=== PATIENT | female | born 1990 | race Caucasian/White ===

== ENCOUNTER 2016-09-02 11:49 | Emergency (ER) | payer SELFPAY ==
[~2016-09-02] VITALS: Ht 162.6 cm; Wt 113.4 kg
[~2016-09-02 11:49] MED LIST: ACHD5005 PO; CEPH500C PO; DOCU100C37 PO; FERR-57 PO; FERR-74 PO; GLYB2.5T4 PO; HYDR-3812 PO; IBP800T PO; IBUP-1773 PO; KETO200T PO; NAPR-243 PO; OXYC-12 PO; PNV1TABL81 PO; PRD10T PO; PRD20T PO; PREN1TAB71 PO; TRAM-42 PO; TRM50T PO
[2016-09-02 13:14] LABS: BILIRUBIN,URINE NEGATIVE (NEGATIVE); KETONES,URINE NEGATIVE (NEGATIVE); LEUKOCYTE ESTERASE ,URINE 1+ (NEGATIVE); NITRITE,URINE NEGATIVE (NEGATIVE); PH,URINE 5 (5-9); PROTEIN,URINE 1+ (NEGATIVE); UROBILINOGEN,URINE NORMAL (NORMAL)
[2016-09-02 13:25] LABS: WBC,URINE 0-2 /HPF
--- NOTE | 2016-09-02 14:29 | ED Back Pain ---
General Chief Complaint: Back Problems Stated Complaint: L LOWER BACK PAIN Nursing Triage Note: ARRIVED VIA AMB TO ROOM 04 WITH COMPLAINTS OF LOW BACK PAIN SINCE SAT WITH NO INJURY. PT STATES SHE HAS TAKEN HER FAMILY'S IBUPROFEN AND HYDROCODONE TODAY WITH NO RELIEF. Nursing Sepsis Screen: No Definite Risk Source of Information: Patient Exam Limitations: No Limitations History of Present Illness Time Seen by Provider: 14:29 Initial Comments 26-year-old female patient presents to the emergency department complains of left low back pain beginning Friday when she woke up. Denies any known injury. Patient does have a pyj-ygyk-bfn, 3-year-old, an [id number] at home. Patient typically sleeps on her right side. Denies any increased activity or heavy lifting recently. Denies bowel incontinence, bladder incontinence, or numbness of the genitalia. Has had a few episodes previously similar to this. Location: Paraspinous Muscles (left low back) Timing/Duration: 1-2 Days, Constant Pain/Injury Location: Back (left low back) Method of Injury: Unknown Modifying Factors: Improves With Immobilization, Worse With Movement Associated Symptoms: muscle spasms, No fever, No weakness, No numbness in legs/ feet, No tingling in legs/feet, No sensory/motor loss, lower back pain (left low back), No loss of bladder control, No loss of bowel control Allergies and Home Medications Allergies Coded Allergies: No Known Drug Allergies (Unverified , 04/20/13) Home Medications No Active Prescriptions or Reported Meds Constitutional: No chills, No fever, No malaise, No weakness EENTM: no symptoms reported Respiratory: no symptoms reported Cardiovascular: no symptoms reported Gastrointestinal: No abdominal pain, No constipation, No diarrhea, No nausea, No vomiting Genitourinary: No dysuria, No frequency, No hematuria, No incontinence, No pain Musculoskeletal: see HPI, back pain, No joint pain, muscle cramps (left low back), No neck pain Skin: no symptoms reported Psychiatric/Neurological: Denies Numbness, Denies Paresthesia, Denies Tingling , Denies Weakness All Other Systems Reviewed Negative Unless Noted: Yes (Negative excepted noted.) Past Hlzuelr-Raburu-Hfsdjp Hx Patient Social History Former Smoker/When Quit: August 21, 2014 Recent Foreign Travel: No Contact w/Someone Who Travel: No Recent Infectious Disease Expo: No Recent Hopitalizations: No Immunizations Up To Date Tetanus Booster (TDap): Less than 5yrs Date of Influenza Vaccine: Jan 05, 2013 Surgeries HX Surgeries: Yes (OVARIAN CYSTECTOMY, ) Surgeries: Section Respiratory Hx Respiratory Disorders: Yes (HAS INHALER-HAS NOT USED IN AT LEAST A YEAR) Respiratory Disorders: Asthma Cardiovascular Hx Cardiac Disorders: No Neurological Hx Neurological Disorders: No Reproductive System Hx Reproductive Disorders: No Sexually Transmitted Disease: No HIV/AIDS: No Female Reproductive Disorders: Denies Genitourinary Hx Genitourinary Disorders: No Gastrointestinal Hx Gastrointestinal Disorders: No Musculoskeletal Hx Musculoskeletal Disorders: No Endocrine Hx Endocrine Disorders: Yes (THYROID- USED TO TAKE MEDS, GESTATIONAL DIABETES) HEENT HX ENT Disorders: Yes (GLASSES) Cancer Hx Cancer: No Psychosocial Hx Psychiatric Problems: No Integumentary HX Skin/Integumentary Disorder: No Blood Transfusions Hx Blood Disorders: No Adverse Reaction to a Blood Tr: No Reviewed Nursing Assessment Reviewed/Agree w Nursing PMH: Yes Family Medical History Significant Family History: No Pertinent Family Hx Family Medial History: Patient reports no known family medical history. Physical Exam Vital Signs Vital Sign - Last 12Hours 09/02/16 12:45 Temp 98.0 Pulse 97 Resp 18 B/P (MAP) 122/75 Capillary Refill : Less Than 3 Seconds General Appearance: No Apparent Distress, WD/WN HEENT: PERRL/EOMI, Pharynx Normal Neck: Full Range of Motion, Normal Inspection, Non Tender, Supple Cardiovascular: Regular Rate, Rhythm, No Edema, No Murmur, Normal Peripheral Pulses Respiratory: Lungs Clear, Normal Breath Sounds, No Respiratory Distress Gastrointestinal: Normal Bowel Sounds, No Organomegaly, Non Tender, Soft, No Distended Back: Normal Inspection, No Vertebral Tenderness, No Decreased Range of Motion , Muscle Spasm Extremity: Normal Capillary Refill, Normal Inspection, Normal Range of Motion ( active range of motion of the left hip increases left low back pain.), Non Tender, No Pedal Edema, Pelvis Stable Neurologic/Psychiatric: Alert, Oriented x3, No Motor/Sensory Deficits, Normal Mood/Affect Skin: Normal Color, Warm/Dry Progress/Results/Core Measures Results/Orders Lab Results Laboratory Tests Test 09/02/16 13:05 Range/Units Urine Color YELLOW Urine Clarity CLEAR Urine pH 5 5-9 Urine Specific Edison 1.020 1.016-1.022 Urine Protein 1+ H NEGATIVE Urine Glucose (UA) NEGATIVE NEGATIVE Urine Ketones NEGATIVE NEGATIVE Urine Nitrite NEGATIVE NEGATIVE Urine Bilirubin NEGATIVE NEGATIVE Urine Urobilinogen NORMAL NORMAL MG/DL Urine Leukocyte Esterase 1+ H NEGATIVE Urine RBC (Auto) NEGATIVE NEGATIVE Urine RBC NONE /HPF Urine WBC 0-2 /HPF Urine Squamous Epithelial Cells 2-5 /HPF Urine Crystals NONE /LPF Urine Bacteria FEW H /HPF Urine Casts NONE /LPF Urine Mucus SMALL H /LPF Urine Culture Indicated NO My Orders Orders - SOCORRO MEDINA Ua Culture If Indicated (09/02/16 12:39) Urine Bedside (09/02/16 12:39) Ibuprofen Tablet (Motrin Tablet) (09/02/16 14:49) Vital Signs/I&O Vital Sign - Last 12Hours 09/02/16 12:45 Temp 98.0 Pulse 97 Resp 18 B/P (MAP) 122/75 Blood Pressure Mean: 91 Point of Care Testing Urine -Bedside: Negative Departure Impression Impression: Primary Impression: Strain of tendon of back Qualified Codes: S39.012A - Strain of muscle, fascia and tendon of lower back , initial encounter Disposition: HOME, SELF-CARE Condition: Improved Departure-Patient Inst. Decision time for Depature: 14:53 Referrals: [facility] (PCP) Primary Care Physician Patient Instructions: Muscle Strain (DC) Add. Discharge Instructions: All discharge instructions reviewed with patient and/or family. Voiced understanding. Medications as instructed. Tylenol extra strength over-the- counter as directed for pain. Ibuprofen 800 mg by mouth every 8 hours as needed for pain. Ice pack or heating pads as needed for pain. Avoid climbing, pushing, pulling, twisting, bending, heavy lifting for 3-5 days, increase activity slowly as tolerated. Follow-up with your family practitioner if no improvement in symptoms in 7-10 days. Return to the emergency department immediately for worsened pain, numbness, weakness, bowel incontinence, bladder incontinence, numbness of the general area, inability to urinate, blood in the urine, abdominal pain, vomiting, or any other concerns. Scripts Tramadol HCl (Tramadol HCl) 50 Mg Tablet 50 MG PO Q4H Y for pain, #14 TAB 0 Refills Prov: SOCORRO MEDINA 09/02/16 Cyclobenzaprine HCl (Cyclobenzaprine HCl) 10 Mg Tablet 10 MG PO Q8H Y for SPASMS, #14 TAB 0 Refills Prov: SOCORRO MEDINA 09/02/16 Prednisone (Prednisone) 20 Mg Tab 40 MG PO DAILY, #10 TAB 0 Refills Prov: SOCORRO MEDINA 09/02/16 SOCORRO MEDINA September 02, 2016 14:29
[2016-09-02] MEDS ORDERED: IBUPROFEN 800 MG (MOTRIN) TAB PO STA (14:49)
[2016-09-02] MEDS ORDERED: TRAM50TA2 PO (14:55)
[2016-09-02] MEDS ORDERED: CYCL10TA9 PO (14:55)
[2016-09-02] MEDS ORDERED: PRD20T PO (14:55)
[2016-09-02 15:03] VITALS: BP 122/75
== END 2016-09-02 15:03 | disposition home or self-care (01) ==
LOC: EDUNIT# 11:49 → ER 11:51
DX: S39.012A Strain of muscle, fascia and tendon of lower back, initial encounter (principal); X50.0XXA Overexertion from strenuous movement or load, initial encounter; Y92.009 Unspecified place in unspecified non-institutional (private) residence as the place of occurrence of the external cause; Y99.8 Other external cause status
CPT/HCPCS: 81000; 84703; 99282

== ENCOUNTER 2017-02-20 16:53 | Emergency (ER) | payer SELFPAY ==
[~2017-02-20] VITALS: Ht 160 cm; Wt 118.1 kg
[~2017-02-20 16:53] MED LIST changes: +CYCL10TA9 PO; +RT-ALBUINH IH; +TRAM50TA2 PO
[2017-02-20] MEDS ORDERED: AZIT250T12 PO (17:12)
[2017-02-20] MEDS ORDERED: PROM5SYR PO (17:12)
[2017-02-20] MEDS ORDERED: BENZ-13 PO (17:12)
--- NOTE | 2017-02-20 17:12 | ED Cough/URI ---
General Stated Complaint: BRONCHITIS Source: patient Exam Limitations: no limitations History of Present Illness Time seen by provider: 17:08 Initial Comments To ER with a persistent nonproductive cough. She was here on 02/12/17 and diagnosed with bronchitis. She also has a history of asthma and smokes but she is working on quitting smoking. She smokes about 3 cigarettes per day. She was given prednisone at that time and she has finished the prednisone. She was also given amoxicillin for an ear infection a few days prior to presenting here in the eighth. She presents today with no improvement in symptoms, persistent nonproductive cough. Absence of fevers Timing/Duration: constant Severity/Quality: dry cough Associated Symptoms: cough Allergies and Home Medications Allergies Coded Allergies: No Known Drug Allergies (Unverified , 04/20/13) Home Medications Albuterol Sulfate 1 Puff Puff, 1-4 PUFF IH Q4H PRN for SHORTNESS OF BREATH, #1 1 PUFF = 90 MCG Prescribed by: AGUSTIN JANSEN on 02/11/171949 Cyclobenzaprine HCl 10 Mg Tablet, 10 MG PO Q8H PRN for SPASMS, #14 Ref 0 Prescribed by: SOCORRO MEDINA on 09/02/16 145 Prednisone 20 Mg Tab, 40 MG PO DAILY, #10 Ref 0 Prescribed by: SOCORRO MEDINA on 09/02/16 145 Prednisone 20 Mg Tab, 20 MG PO DAILY, #4 Prescribed by: AGSUTIN JANSEN on 02/11/171949 Tramadol HCl 50 Mg Tablet, 50 MG PO Q4H PRN for pain, #14 Ref 0 Prescribed by: SOCORRO MEDINA on 09/02/16 1455 Constitutional: see HPI, No chills, No fever EENTM: see HPI Respiratory: see HPI, cough Cardiovascular: no symptoms reported Genitourinary: no symptoms reported Musculoskeletal: no symptoms reported Skin: no symptoms reported Psychiatric/Neurological: No Symptoms Reported Past Wknquca-Epaubb-Yclobl Hx Patient Social History Recent Foreign Travel: No Contact w/Someone Who Travel: No Recent Hopitalizations: No Immunizations Up To Date Tetanus Booster (TDap): Less than 5yrs Date of Influenza Vaccine: Jan 05, 2013 Surgeries History of Surgeries: Yes (OVARIAN CYSTECTOMY, ) Surgeries: Section Respiratory History of Respiratory Disorde: Yes Respiratory Disorders: Asthma Cardiovascular History of Cardiac Disorders: No Neurological History of Neurological Disord: No Reproductive System Hx Reproductive Disorders: No Sexually Transmitted Disease: No HIV/AIDS: No Female Reproductive Disorders: Denies Genitourinary History of Genitourinary Disor: No Gastrointestinal History of Gastrointestinal Di: No Musculoskeletal History of Musculoskeletal Dis: No Endocrine History of Endocrine Disorders: Yes (THYROID- USED TO TAKE MEDS, GESTATIONAL DIABETES) HEENT History of HEENT Disorders: No Cancer History of Cancer: No Psychosocial History of Psychiatric Problem: No Integumentary History of Skin or Integumenta: No Blood Transfusions History of Blood Disorders: No Adverse Reaction to a Blood Tr: No Family Medical History Significant Family History: No Pertinent Family Hx Family Medial History: Patient reports no known family medical history. Physical Exam Vital Signs Capillary Refill : General Appearance: WD/WN, no apparent distress Eyes: Bilateral Eye Normal Inspection, Bilateral Eye PERRL, Bilateral Eye EOMI HEENT: PERRL/EOMI, normal ENT inspection, TMs normal, pharyngeal erythema Neck: non-tender, full range of motion, No lymphadenopathy (R), No lymphadenopathy (L) Respiratory: chest non-tender, lungs clear, normal breath sounds, no respiratory distress, no accessory muscle use Cardiovascular: no murmur, tachycardia Gastrointestinal: normal bowel sounds, non tender, soft Neurologic/Psychiatric: alert, normal mood/affect, oriented x 3 Skin: normal color, warm/dry Progress/Results/Core Measures Suspected Sepsis SIRS Temperature: Pulse: Respiratory Rate: Blood Pressure / Mean: Results/Orders My Orders Orders - MOE IRBY APRN Chest Pa/Lat (2 View) (02/20/17 17:06) Vital Signs/I&O Capillary Refill : Departure Communication (Admissions) Progress Notes We will cover for atypical pathogens with azithromycin and her promethazine/ codeine and Tessalon Perles for cough control. Impression Impression: Primary Impression: Bronchitis Disposition: 01 HOME, SELF-CARE Condition: Stable Departure-Patient Inst. Decision time for Depature: 17:11 Referrals: [facility] (PCP/Family) Primary Care Physician Patient Instructions: Acute Bronchitis in Adults Add. Discharge Instructions: Medication as directed 2. Follow-up with your doctor next week for recheck 3. Return to ER for any concerns Scripts Azithromycin (Azithromycin) 250 Mg Tablet 250 MG PO UD, #6 TAB TAKE 2 TABLETS ON DAY ONE THEN TAKE 1 TABLET DAILY FOR FOUR MORE DAYS Prov: MOE IRBY APRN 02/20/17 Promethazine HCl/Codeine (Prometh-Codein 6.25-10 mg/5 ml) 5 Ml Syrup 7.5 ML PO Q6H Y for COUGH, #120 ML Prov: MOE IRBY APRN 02/20/17 Benzonatate (Tessalon Perle) 100 Mg Capsule 100 MG PO TID Y for COUGH, #21 CAP Prov: MOE IRBY APRN 02/20/17 Work/School Note: Work Release Form Date Seen in the Emergency Department: Feb 20, 2017 Return to Work: Feb 22, 2017 MOE IRBY APRN Feb 20, 2017 17:12
--- NOTE | 2017-02-20 17:25 | Diagnostic Imaging Report ---
INDICATION: Cough and chest pain EXAM: PA and lateral chest obtained at 5:35 hours p.m. COMPARISON: 02/11/2017. FINDINGS: The heart and mediastinal silhouette are normal in appearance. The lungs are clear. There is no pneumothorax or pleural fluid. IMPRESSION: Negative chest. Dictated by: Dictated on workstation # [id number]
[2017-02-20 17:35] VITALS: BP 143/83
== END 2017-02-20 17:34 | disposition home or self-care (01) ==
LOC: EDUNIT# 16:53 → ER 16:54
DX: J40 Bronchitis, not specified as acute or chronic (principal); J45.909 Unspecified asthma, uncomplicated; Z87.59 Personal history of other complications of pregnancy, childbirth and the puerperium; Z90.6 Acquired absence of other parts of urinary tract
CPT/HCPCS: 71020; 99282

== ENCOUNTER 2017-03-07 20:34 | Emergency (ER) | payer SELFPAY ==
[~2017-03-07] VITALS: Ht 160 cm; Wt 118.1 kg
[~2017-03-07 20:34] MED LIST changes: +AZIT250T12 PO; +BENZ-13 PO; +PROM5SYR PO
[2017-03-07] MEDS ORDERED: LEVO500T2 PO (20:54)
[2017-03-07] MEDS ORDERED: METH4TAB PO (20:54)
--- NOTE | 2017-03-07 20:54 | ED Cough/URI ---
General Chief Complaint: Cough/Cold/Flu Symptoms Stated Complaint: BRONCHITIS Source: patient Exam Limitations: no limitations History of Present Illness Time seen by provider: 20:51 Initial Comments All to ER with reports of a persistent nonproductive cough, sore throat, rhinorrhea no fevers or chills. This will be her third presentation to the emergency room for this complaint within the past month and she has also seen [facility]. He has been on azithromycin and a course of steroids as well as Tessalon Perles and promethazine/codeine. Timing/Duration: constant Severity/Quality: dry cough Associated Symptoms: cough, nasal drainage Allergies and Home Medications Allergies Coded Allergies: No Known Drug Allergies (Unverified , 04/20/13) Home Medications Albuterol Sulfate 1 Puff Puff, 1-4 PUFF IH Q4H PRN for SHORTNESS OF BREATH, #1 1 PUFF = 90 MCG Prescribed by: AGUSTIN JANSEN on 02/11/171949 Azithromycin 250 Mg Tablet, 250 MG PO UD, #6 TAKE 2 TABLETS ON DAY ONE THEN TAKE 1 TABLET DAILY FOR FOUR MORE DAYS Prescribed by: MOE IRBY on 02/20/171711 Benzonatate 100 Mg Capsule, 100 MG PO TID PRN for COUGH, #21 Prescribed by: MOE IRBY on 02/20/171711 Cyclobenzaprine HCl 10 Mg Tablet, 10 MG PO Q8H PRN for SPASMS, #14 Ref 0 Prescribed by: SOCORRO MEDINA on 09/02/161454 Prednisone 20 Mg Tab, 40 MG PO DAILY, #10 Ref 0 Prescribed by: SOCORRO MEDINA on 09/02/161454 Prednisone 20 Mg Tab, 20 MG PO DAILY, #4 Prescribed by: AGUSTIN JANSEN on 02/11/171949 Promethazine HCl/Codeine 5 Ml Syrup, 7.5 ML PO Q6H PRN for COUGH, #120 Prescribed by: MOE IRBY on 02/20/171711 Tramadol HCl 50 Mg Tablet, 50 MG PO Q4H PRN for pain, #14 Ref 0 Prescribed by: SOCORRO MEDINA on 09/02/161454 Constitutional: see HPI, No chills, No fever EENTM: see HPI, nose congestion, throat pain Respiratory: see HPI, cough, No short of breath, No wheezing Cardiovascular: no symptoms reported Genitourinary: no symptoms reported Musculoskeletal: no symptoms reported Skin: no symptoms reported Psychiatric/Neurological: No Symptoms Reported Past Cglfdwp-Bxgyyc-Qkeuet Hx Patient Social History Alcohol Use: Denies Use Recreational Drug Use: No Smoking Status: Former Smoker Recent Foreign Travel: No Contact w/Someone Who Travel: No Recent Hopitalizations: No Immunizations Up To Date Tetanus Booster (TDap): Less than 5yrs Date of Influenza Vaccine: Jan 05, 2013 Surgeries History of Surgeries: Yes (OVARIAN CYSTECTOMY, ) Surgeries: Section Respiratory History of Respiratory Disorde: Yes Respiratory Disorders: Asthma Cardiovascular History of Cardiac Disorders: No Neurological History of Neurological Disord: No Reproductive System Hx Reproductive Disorders: No Sexually Transmitted Disease: No HIV/AIDS: No Female Reproductive Disorders: Denies Genitourinary History of Genitourinary Disor: No Gastrointestinal History of Gastrointestinal Di: No Musculoskeletal History of Musculoskeletal Dis: No Endocrine History of Endocrine Disorders: Yes (THYROID- USED TO TAKE MEDS, GESTATIONAL DIABETES) HEENT History of HEENT Disorders: No Cancer History of Cancer: No Psychosocial History of Psychiatric Problem: No Integumentary History of Skin or Integumenta: No Blood Transfusions History of Blood Disorders: No Adverse Reaction to a Blood Tr: No Family Medical History Significant Family History: No Pertinent Family Hx Family Medial History: Patient reports no known family medical history. Physical Exam Vital Signs Capillary Refill : General Appearance: WD/WN, no apparent distress, obese Eyes: Bilateral Eye Normal Inspection, Bilateral Eye PERRL, Bilateral Eye EOMI HEENT: PERRL/EOMI, normal ENT inspection, other (the right tympanic membrane is erythematous and bulging) Neck: non-tender, full range of motion Respiratory: normal breath sounds, no respiratory distress, no accessory muscle use Cardiovascular: regular rate, rhythm, no murmur Gastrointestinal: normal bowel sounds, non tender, soft Extremities: normal range of motion, non-tender Neurologic/Psychiatric: alert, normal mood/affect, oriented x 3 Skin: normal color, warm/dry Progress/Results/Core Measures Suspected Sepsis SIRS Temperature: Pulse: Respiratory Rate: Blood Pressure / Mean: Results/Orders Vital Signs/I&O Capillary Refill : Departure Impression Impression: Primary Impression: Cough Disposition: 01 HOME, SELF-CARE Condition: Stable Departure-Patient Inst. Decision time for Depature: 20:53 [facility] Primary Care Physician Patient Instructions: Cough, Adult (DC) Scripts Levofloxacin (Levaquin) 500 Mg Tablet 500 MG PO DAILY, #5 TAB Prov: MOE IRBY APRN 03/07/17 Methylprednisolone (Medrol) 4 Mg Tab.ds.pk 4 MG PO UD, #1 PKG Prov: MOE IRBY APRN 03/07/17 MOE IRBY APRN Mar 07, 2017 20:54
--- NOTE | 2017-03-07 21:09 | Diagnostic Imaging Report ---
INDICATION: Cough and shortness of breath. Comparison is made with prior examination from 02/20/2017. FINDINGS: The heart size, mediastinal configuration, and pulmonary vascularity are within normal limits. There is no pleural effusion, pneumothorax, or pneumonia. The osseous structures are unremarkable. IMPRESSION: No acute cardiopulmonary abnormality. Dictated by: Dictated on workstation # [id number]
[2017-03-07] MEDS ORDERED: APAP 300 MG/CODEINE 30 MG (TYLENOL #3) TAB PO ONE (21:15)
[2017-03-07 21:30] LABS: BASOPHILS % (AUTO) 0 % (0-10); EOSINOPHILS # (AUTO) 0.7 10^3/uL (0.0-0.3); EOSINOPHILS % (AUTO) 6 % (0-10); LYMPHOCYTES % (AUTO) 23 % (12-44); MEAN CORPUSCULAR HEMOGLOBIN 31 PG (25-34); MEAN CORPUSCULAR HGB CONC 34 G/DL (32-36); MEAN CORPUSCULAR VOLUME 90 FL (80-99); MEAN PLATELET VOLUME 9.9 FL (7.4-10.4); MONOCYTES # (AUTO) 1.2 X 10^3 (0.0-1.0); MONOCYTES % (AUTO) 9 % (0-12); NEUTROPHILS # (AUTO) 7.8 X 10^3 (1.8-7.8); NEUTROPHILS % (AUTO) 62 % (42-75); PLATELET COUNT 281 10^3/uL (130-400); RED BLOOD COUNT 4.39 10^6/uL (4.35-5.85); RED CELL DISTRIBUTION WIDTH 12.8 % (10.0-14.5); WHITE BLOOD COUNT 12.7 10^3/uL (4.3-11.0)
[2017-03-07 21:37] VITALS: BP 125/87
== END 2017-03-07 21:36 | disposition home or self-care (01) ==
LOC: EDUNIT# 20:34 → ER 20:35
DX: R05 Cough (principal); J45.909 Unspecified asthma, uncomplicated; Z87.59 Personal history of other complications of pregnancy, childbirth and the puerperium; Z87.891 Personal history of nicotine dependence
CPT/HCPCS: 36415; 71020; 85025; 99283

== ENCOUNTER 2017-03-21 16:59 | Emergency (ER) | payer SELFPAY ==
[~2017-03-21] VITALS: Ht 160 cm; Wt 120.2 kg
[~2017-03-21 16:59] MED LIST changes: +LEVO500T2 PO; +METH4TAB PO
[2017-03-21] MEDS ORDERED: KETOROLAC 60 MG/2 ML VIAL IM ONE (17:30)
--- NOTE | 2017-03-21 17:31 | ED Back Pain ---
General Chief Complaint: Back Problems Stated Complaint: BACK PAIN Nursing Triage Note: ARRIVED VIA AMB TO ROOM 10. COMPLAINS OF LOWER LEFT BACK PAIN FOR A WEEK. HAS BEEN SEEN BY AND BY A CHIROPRACTOR. Nursing Sepsis Screen: No Definite Risk Source of Information: Patient Exam Limitations: No Limitations History of Present Illness Time Seen by Provider: 17:26 Initial Comments This 27-year-old white female presents complaining of persistent left low back pain for the last several days. The patient denies remote or recent trauma to the area. She's had 2 similar episodes in the past again unrelated to trauma which lasted for several days and then resolve spontaneously. Patient denies paresthesias or weakness in the a.m. lower extremities. She has had no perineal anesthesia. She has had no impairment of bowel or bladder function. Patient's past medical history includes a recent bronchitis. Patient has had 3 previous C-sections. She's had excision of an ovarian cyst. Allergies and Home Medications Allergies Coded Allergies: No Known Drug Allergies (Unverified , 04/20/13) Home Medications Albuterol Sulfate 1 Puff Puff, 1-4 PUFF IH Q4H PRN for SHORTNESS OF BREATH, #1 1 PUFF = 90 MCG Prescribed by: AGUSTIN JANSEN on 02/11/17 1950 Azithromycin 250 Mg Tablet, 250 MG PO UD, #6 TAKE 2 TABLETS ON DAY ONE THEN TAKE 1 TABLET DAILY FOR FOUR MORE DAYS Prescribed by: MOE IRBY on 02/20/171711 Benzonatate 100 Mg Capsule, 100 MG PO TID PRN for COUGH, #21 Prescribed by: MOE IRBY on 02/20/171711 Cyclobenzaprine HCl 10 Mg Tablet, 10 MG PO Q8H PRN for SPASMS, #14 Ref 0 Prescribed by: SOCORRO MEDINA on 09/02/16 145 Levofloxacin 500 Mg Tablet, 500 MG PO DAILY, #5 Prescribed by: MOE IRBY on 03/07/172053 Methylprednisolone 4 Mg Tab.ds.pk, 4 MG PO UD, #1 Prescribed by: MOE IRBY on 03/07/172053 Prednisone 20 Mg Tab, 40 MG PO DAILY, #10 Ref 0 Prescribed by: SOCORRO MEDINA on 09/02/16 145 Prednisone 20 Mg Tab, 20 MG PO DAILY, #4 Prescribed by: AGUSTIN JANSEN on 02/11/17 1950 Promethazine HCl/Codeine 5 Ml Syrup, 7.5 ML PO Q6H PRN for COUGH, #120 Prescribed by: MOE IRBY on 02/20/17 1712 Tramadol HCl 50 Mg Tablet, 50 MG PO Q4H PRN for pain, #14 Ref 0 Prescribed by: SOCORRO MEDINA on 09/02/16 1455 Constitutional: No chills, No fever EENTM: No hearing loss, No vision loss Respiratory: No cough Cardiovascular: No chest pain Gastrointestinal: No abdominal pain, No nausea, No vomiting Genitourinary: No decreased output, No dysuria, No frequency Musculoskeletal: see HPI, back pain, joint pain (the left SI joint is the area of greatest discomfort to the patient) Skin: No change in color, No rash Psychiatric/Neurological: Denies Anxiety, Denies Depressed Past Gaigfxy-Elneea-Rwmfzj Hx Patient Social History Alcohol Use: Denies Use Recreational Drug Use: No Smoking Status: Current Everyday Smoker Recent Foreign Travel: No Contact w/Someone Who Travel: No Recent Infectious Disease Expo: No Recent Hopitalizations: No Immunizations Up To Date Tetanus Booster (TDap): Less than 5yrs Date of Influenza Vaccine: Jan 05, 2013 Surgeries History of Surgeries: Yes (OVARIAN CYSTECTOMY, ) Surgeries: Section Respiratory History of Respiratory Disorde: Yes Respiratory Disorders: Asthma Cardiovascular History of Cardiac Disorders: No Neurological History of Neurological Disord: No Reproductive System Hx Reproductive Disorders: No Sexually Transmitted Disease: No HIV/AIDS: No Female Reproductive Disorders: Denies Genitourinary History of Genitourinary Disor: No Gastrointestinal History of Gastrointestinal Di: No Musculoskeletal History of Musculoskeletal Dis: No Endocrine History of Endocrine Disorders: Yes (THYROID- USED TO TAKE MEDS, GESTATIONAL DIABETES) HEENT History of HEENT Disorders: No Cancer History of Cancer: No Psychosocial History of Psychiatric Problem: No Integumentary History of Skin or Integumenta: No Blood Transfusions History of Blood Disorders: No Adverse Reaction to a Blood Tr: No Reviewed Nursing Assessment Reviewed/Agree w Nursing PMH: Yes Family Medical History Significant Family History: No Pertinent Family Hx Family Medial History: Patient reports no known family medical history. Physical Exam Vital Signs Vital Sign - Last 12Hours 03/21/17 17:00 Temp 98.0 Pulse 104 Resp 18 B/P (MAP) 148/88 (108) Pulse Ox 99 Capillary Refill : Less Than 3 Seconds General Appearance: No Apparent Distress, WD/WN HEENT: Normal ENT Inspection Neck: Normal Inspection Cardiovascular: Regular Rate, Rhythm Respiratory: Chest Non Tender Gastrointestinal: Normal Bowel Sounds, Non Tender Back: Normal Inspection, Other (. Patient's tenderness and pain is in the left SI.) Extremity: Normal Capillary Refill, Normal Inspection Neurologic/Psychiatric: Alert, Oriented x3 Skin: Normal Color, Warm/Dry Progress/Results/Core Measures Results/Orders My Orders Orders - KENRICK MEDINA MD Ketorolac Injection (Toradol Injection) (03/21/17 17:30) Vital Signs/I&O Vital Sign - Last 12Hours 03/21/17 17:00 Temp 98.0 Pulse 104 Resp 18 B/P (MAP) 148/88 (108) Pulse Ox 99 Blood Pressure Mean: 108 Progress Note : Time: 17:29 Progress Note Discussed the presentation with the patient. She is comfortable with conservative approach of medication and rest over the weekend. She'll follow- up with her caregiver at [facility] on Friday if she is not significantly improved. Patient received 60 mg Toradol IM in the emergency department. Prescriptions written for a medium strength pain medication, further ketorolac, and Flexeril. Departure Impression Impression: Primary Impression: Lower back pain Qualified Codes: M54.5 - Low back pain Disposition: 01 HOME, SELF-CARE Condition: Improved Departure-Patient Inst. Referrals: [facility] (PCP/Family) Primary Care Physician Patient Instructions: Low Back Pain (DC) Add. Discharge Instructions: Percocet, Toradol, and Flexeril as prescribed. Close follow-up with [facility] on Friday if not significantly improved. Return of any problems or questions. All discharge instructions reviewed with patient and/or family. Voiced understanding. KENRICK MEDINA MD Mar 21, 2017 17:30
[2017-03-21 17:49] VITALS: BP 148/88
== END 2017-03-21 17:49 | disposition home or self-care (01) ==
LOC: EDUNIT# 16:59 → ER 17:00
DX: M54.5 Low back pain (principal); J45.909 Unspecified asthma, uncomplicated; Z90.6 Acquired absence of other parts of urinary tract; Z87.59 Personal history of other complications of pregnancy, childbirth and the puerperium
CPT/HCPCS: 99284

== ENCOUNTER 2017-03-28 08:45 | Emergency (ER) | payer SELFPAY ==
[~2017-03-28] VITALS: Ht 160 cm; Wt 120.2 kg
--- OUTSIDE RECORDS SUMMARY | 2017-03-28 08:51 | XMS REPORT | Continuity of Care Document ---
Author Author Replaced By [facility] Address Unknown Phone Unavailable Allergies Active Description Code Type Severity Reaction Onset Reported/Identified Relationship to Patient Clinical Status Yes No Known Drug Allergies [id number] Drug Allergy Unknown N/A 04/20/2013 Medications There is no data. Problems Date Dx Coded Attending Type Code Diagnosis Diagnosed By 10/24/2011 BLANCA EAGLE APRN 112.3 CANDIDIASIS SKIN CANDIDAL INTERTRIGO 10/24/2011 BLANCA EAGLE APRN V74.5 STD SCREEN 10/24/2011 BLANCA EAGLE APRN V76.2 Cervical Pap Smear 10/24/2011 112.3 CANDIDIASIS SKIN CANDIDAL INTERTRIGO 10/24/2011 V74.5 STD SCREEN 10/24/2011 V76.2 Cervical Pap Smear 11/18/2011 BLANCA EAGLE APRN 719.43 PAIN IN JOINT INVOLVING FOREARM 11/18/2011 719.43 PAIN IN JOINT INVOLVING FOREARM 12/28/2011 Ot 881.00 OPEN WOUND OF FOREARM 12/28/2011 Ot E000.8 OTHER EXTERNAL CAUSE STATUS 12/28/2011 Ot E849.0 ACCIDENT IN HOME 12/28/2011 Ot E920.8 ACC-CUTTING INSTRUM NEC 12/28/2011 Ot V06.1 DIPHTHERIA- TETANUS-PERTUSSIS, COMBINED [ 01/07/2012 Ot V58.32 ENCOUNTER FOR REMOVAL OF SUTURES 03/17/2012 BLANCA EAGLE APRN V72.42 TEST POSITIVE RESULT 03/17/2012 V72.42 TEST POSITIVE RESULT 06/27/2012 Ot 079.99 VIRAL INFECTION NOS 06/27/2012 Ot 647.63 OTH VIRAL DIS-ANTEPARTUM 08/18/2012 V65.11 NEW MOMMY VISIT 10/18/2012 FRANCIS FARLEY DO Ot 300.00 ANXIETY STATE NOS 10/18/2012 FRANCIS FARLEY DO Ot 648.41 MENTAL DISORDER-DELIVER 10/18/2012 FRANCIS FARLEY DO Rhoda Ot 654.21 PREV DELIVRY W/ OR W/O MENT ANT 10/18/2012 MARTINE HUMPHRIES FRANCIS Rhoda Ot V03.82 PROPHYLACTIC VACC AGAINST STREPTOCOCCUS 10/18/2012 MARTINE HUMPHRIES FRANCIS Rhoda Ot V06.1 RYVPLULFEO-[id number]-PUAVYOLTD, COMBINED [ 10/18/2012 HAI FARLEY DOTona Duong Ot V27.0 DELIVER-SINGLE LIVEBORN 04/20/2013 MOE IRBY TELEGRAPH MECHANIC Ot 490 BRONCHITIS NOS 04/20/2013 MOE IRBY TELEGRAPH MECHANIC Ot 786.50 CHEST PAIN NOS 04/20/2013 MOE IRBY TELEGRAPH MECHANIC Ot 786.52 PAINFUL RESPIRATION 12/23/2013 CHERI ISIDRO, CHRISTINA Carbone Ot 708.9 URTICARIA NOS 08/30/2014 LINN GUO DO Ot 041.10 BACTERIAL INFEC DUE TO UNSPEC STAPHYLOCO 08/30/2014 LINN GUO DO Ot 110.2 DERMATOPHYTOSIS OF HAND 08/30/2014 LINN GUO DO Ot 782.1 NONSPECIF SKIN ERUPT NEC 11/29/2014 FARLEYTiara HUMPHRIES FRANCIS C Ot V22.1 12/28/2014 MARTINE HUMPHRIES FRANCIS C Ot V28.3 02/16/2015 HAI FARLEY DOA C Ot V22.1 02/16/2015 FARLEY DO FRANCIS C Ot V28.3 02/16/2015 FARLEY HAI HUMPHRIESA C Ot V22.1 02/16/2015 HAI FARLEY DOA C Ot V28.3 02/17/2015 HAI FARLEY DOA C Ot O24.410 02/17/2015 FARLEY DOHAIA C Ot O34.21 02/17/2015 FARLEY DOHAIA C Ot Z3A.37 02/17/2015 FARLEY DO, FRANCIS C Ot O24.410 02/17/2015 FARLEY DO, FRANCIS C Ot O34.21 02/17/2015 FARLEY DO FRANCIS C Ot Z3A.37 02/21/2015 FARLEY DOHAIA C Ot V22.1 02/21/2015 FARLEY DO FRANCIS C Ot V28.3 02/21/2015 FARLEY DO FRANCIS C Ot O24.410 02/21/2015 FARLEY DO, FRANCIS C Ot O34.21 02/21/2015 FARLEY DO, FRANCIS C Ot Z3A.37 03/02/2015 FARLEY DO, FRANCIS C Ot O24.419 GESTATIONAL DIABETES MELLITUS IN PREGNAN 03/02/2015 FARLEY DO, FRANCIS C Ot O34.21 MATERNAL CARE FOR SCAR FROM PREVIOUS ANGELICA 03/02/2015 FARLEY DOFRANCIS C Ot Z23 ENCOUNTER FOR IMMUNIZATION 03/02/2015 FARLEY DOHAIA C Ot Z37.0 SINGLE LIVE 03/02/2015 FARLEY DO FRANCIS C Ot Z3A.39 39 WEEKS GESTATION OF 03/06/2015 FARLEY DO, FRANCIS C Ot O24.410 03/06/2015 FARLEY DO, FRANCIS C Ot O34.21 03/06/2015 FARLEY DO, FRANCIS C Ot Z3A.37 03/14/2015 FARLEY DO, FRANCIS C Ot 654.23 03/14/2015 FARLEY DO, FRANCIS C Ot V72.63 03/14/2015 FARLEY DO, FRANCIS C Ot V74.8 03/14/2015 FARLEY DO, FRANCIS C Ot O24.410 03/14/2015 FARLEY DO, FRANCIS C Ot O34.21 03/14/2015 FARLEY DO, FRANCIS C Ot Z3A.37 03/14/2015 FARLEY DO, FRANCIS C Ot V28.3 03/14/2015 FARLEY DO, FRANCIS C Ot 654.23 03/14/2015 FARLEY DO, FRANCIS C Ot V72.63 03/14/2015 FARLEY DO, FRANCIS C Ot V74.8 03/14/2015 FARLEY DO, FRANCIS C Ot V22.1 03/14/2015 FARLEY DO, FRANCIS C Ot V28.3 03/14/2015 FARLEY DO, FRANCIS C Ot O24.410 03/14/2015 FARLEY DO, FRANCIS C Ot O34.21 03/14/2015 FARLEY DO, FRANCIS C Ot Z3A.37 06/12/2015 FARLEY DO, FRANCIS C Ot O24.410 06/12/2015 FARLEY DO, FRANCIS C Ot O34.21 06/12/2015 FARLEY DO, FRANCIS C Ot Z3A.37 06/12/2015 FARLEY DO, FRANCIS C Ot 654.23 06/12/2015 FARLEY DO, FRANCIS C Ot V72.63 06/12/2015 FARLEY DO, FRANCIS C Ot V74.8 06/12/2015 FARLEY DO, FRANCIS C Ot V22.1 06/12/2015 FARLEY DO, FRANCIS C Ot V28.3 06/12/2015 FARLEY DO, FRANCIS C Ot O24.410 06/12/2015 FARLEY DO, FRANCIS C Ot O34.21 06/12/2015 FARLEY DO, FRANCIS C Ot Z3A.37 06/22/2015 FARLEY DO, FRANCIS C Ot O24.410 06/22/2015 FARLEY DO, FRANCIS C Ot O34.21 06/22/2015 FARLEY DO, FRANCIS C Ot Z3A.37 06/29/2015 FARLEY DO, FRANCIS C Ot O24.410 06/29/2015 FARLEY DO, FRANCIS C Ot O34.21 06/29/2015 FARLEY DO, FRANCIS C Ot Z3A.37 07/04/2015 FARLEY DO, FRANCIS C Ot V28.3 10/03/2015 FARLEY DO, FRANCIS C Ot 654.23 PREV DELIVERY, ANTEPARTUM COND 10/03/2015 FARLEY DO FRANCIS C Ot V72.63 PRE-PROCEDURAL LABORATORY EXAMINATION 10/03/2015 FARLEY DO FRANCIS C Ot V74.8 SCREEN-BACTERIAL DIS NEC 10/03/2015 FARLEY DO FRANCIS C Ot V22.1 SUPERVIS OTH NORMAL PREG 10/03/2015 FARLEY DO FRANCIS C Ot V28.3 ENCOUNTER ROUTINE SCREEN FOR MALFORMATIO 10/03/2015 FARLEY DO FRANCIS C Ot O24.410 GESTATIONAL DIABETES MELLITUS IN PREGNAN 10/03/2015 FARLEY DO FRANCIS C Ot O34.21 MATERNAL CARE FOR SCAR FROM PREVIOUS ANGELICA 10/03/2015 FARLEY DO FRANCIS C Ot Z3A.37 37 WEEKS GESTATION OF 10/03/2015 FARLEY DO FRANCIS C Ot V22.1 SUPERVIS OTH NORMAL PREG 10/04/2015 MOE IRBY APRN Ot 490 BRONCHITIS NOS 10/04/2015 MOE IRBY TELEGRAPH MECHANIC Ot 786.50 CHEST PAIN NOS 10/04/2015 MOE IRBY TELEGRAPH MECHANIC Ot 786.52 PAINFUL RESPIRATION 01/17/2016 MARTINE HUMPHRIES FRANCIS Duong Ot V22.1 SUPERVIS OTH NORMAL PREG 01/17/2016 FRANCIS FARLEY DO Ot V28.3 ENCOUNTER ROUTINE SCREEN FOR MALFORMATIO 01/17/2016 MARTINE HUMPHRIES FRANCIS Duong Ot O34.21 MATERNAL CARE FOR SCAR FROM PREVIOUS ANGELICA 01/17/2016 MARTINE HUMPHRIES FRANCIS Duong Ot Z01.818 ENCOUNTER FOR OTHER PREPROCEDURAL EXAMIN 01/17/2016 MARTINE HUMPHRIES FRANCIS Duong Ot Z11.2 ENCOUNTER FOR SCREENING FOR OTHER BACTER 01/17/2016 MARTINE HUMPHRIES FRANCIS Duong Ot Z3A.00 WEEKS OF GESTATION OF NOT SPEC 01/17/2016 MARTINE HUMPHRIES FRANCIS Duong Ot O24.410 GESTATIONAL DIABETES MELLITUS IN PREGNAN 01/17/2016 MARTINE HUMPHRIES FRANCIS Duong Ot O34.21 MATERNAL CARE FOR SCAR FROM PREVIOUS ANGELICA 01/17/2016 MARTINE HUMPHRIES FRANCIS Rhoda Ot Z3A.37 37 WEEKS GESTATION OF 01/17/2016 BONNIE ISIDRO, AGUSTIN T Ot F17.210 NICOTINE DEPENDENCE, CIGARETTES, UNCOMPL 01/17/2016 AGUSTIN NICOLE MD T Ot M46.1 SACROILIITIS, NOT ELSEWHERE CLASSIFIED 01/17/2016 AGUSTIN NICOLE MD T Ot M54.5 LOW BACK PAIN 01/18/2016 AGUSTIN NICOLE MD T Ot F17.210 NICOTINE DEPENDENCE, CIGARETTES, UNCOMPL 01/18/2016 AGUSTIN NICOLE MD T Ot M46.1 SACROILIITIS, NOT ELSEWHERE CLASSIFIED 01/18/2016 AGUSTIN NICOLE MD T Ot M54.5 LOW BACK PAIN 01/19/2016 AGUSTIN NICOLE MD T Ot F17.210 NICOTINE DEPENDENCE, CIGARETTES, UNCOMPL 01/19/2016 AGUSTIN NICOLE MD T Ot M46.1 SACROILIITIS, NOT ELSEWHERE CLASSIFIED 01/19/2016 AGUSTIN NICOLE MD T Ot M54.5 LOW BACK PAIN 09/02/2016 SOCORRO JACKMAN Ot M54.5 LOW BACK PAIN 09/02/2016 SOCORRO JACKMAN Ot S39.012A STRAIN OF MUSCLE, FASCIA AND TENDON OF L 09/02/2016 SOCORRO JACKMAN Ot X50.0XXA OVEREXERTION FROM STRENUOUS MOVEMENT OR 09/02/2016 SOCORRO JACKMAN Ot Y92.[address] IN [facility] NON-[facility] (PRIVATE 09/02/2016 SOCORRO JACKMAN Ot Y99.8 OTHER EXTERNAL CAUSE STATUS 09/02/2016 FARLEY DO FRANCIS C Ot 654.23 PREV DELIVERY, ANTEPARTUM COND 09/02/2016 FARLEY DO FRANCIS C Ot V72.63 PRE-PROCEDURAL LABORATORY EXAMINATION 09/02/2016 FARLEY DO FRANCIS C Ot V74.8 SCREEN-BACTERIAL DIS NEC 09/02/2016 FARLEY DO FRANCIS C Ot V22.1 SUPERVIS OTH NORMAL PREG 09/02/2016 FARLEY DO FRANCIS C Ot V28.3 ENCOUNTER ROUTINE SCREEN FOR MALFORMATIO 09/02/2016 MARTINE DO FRANCIS C Ot O24.410 GESTATIONAL DIABETES MELLITUS IN PREGNAN 09/02/2016 MARTINE DO FRANCIS C Ot O34.21 MATERNAL CARE FOR SCAR FROM PREVIOUS ANGELICA 09/02/2016 MARTINE DO FRANCIS C Ot Z3A.37 37 WEEKS GESTATION OF 09/08/2016 SOCORRO JACKMAN Ot M54.5 LOW BACK PAIN 09/08/2016 SOCORRO JACKMAN Ot S39.012A STRAIN OF MUSCLE, FASCIA AND TENDON OF L 09/08/2016 SOCORRO JACKMAN Ot X50.0XXA OVEREXERTION FROM STRENUOUS MOVEMENT OR 09/08/2016 [facility]92.[facility] ([facility] 09/08/2016 SOCORRO JACKMAN Ot Y99.8 OTHER EXTERNAL CAUSE STATUS 02/11/2017 FARLEY DO FRANCIS C Ot 654.23 PREV DELIVERY, ANTEPARTUM COND 02/11/2017 FARLEY DO FRANCIS C Ot V72.63 PRE-PROCEDURAL LABORATORY EXAMINATION 02/11/2017 FARLEY DO FRANCIS C Ot V74.8 SCREEN-BACTERIAL DIS NEC 02/11/2017 FARLEY DO FRANCIS C Ot V22.1 SUPERVIS OTH NORMAL PREG 02/11/2017 FARLEY DO FRANCIS C Ot V28.3 ENCOUNTER ROUTINE SCREEN FOR MALFORMATIO 02/11/2017 MARTINE HUMPHRIES FRANCIS C Ot O24.410 GESTATIONAL DIABETES MELLITUS IN PREGNAN 02/11/2017 MARTINE HUMPHRIES FRANCIS C Ot O34.21 MATERNAL CARE FOR SCAR FROM PREVIOUS ANGELICA 02/11/2017 FRANCIS FARLEY DO C Ot Z3A.37 37 WEEKS GESTATION OF 02/11/2017 BONNIE ISIDRO, AGUSTIN Perez Ot F17.200 NICOTINE DEPENDENCE, UNSPECIFIED, UNCOMP 02/11/2017 BONNIE ISIDRO, AGUSTIN Perez Ot J45.901 UNSPECIFIED ASTHMA WITH (ACUTE) EXACERBA 02/11/2017 BONNIE ISIDRO, AGUSTIN Perez Ot R05 COUGH 02/11/2017 BONNIE ISIDRO, AGUSTIN Perez Ot Z87.59 PERSONAL HISTORY OF COMP OF PREG, CHLDBR 02/11/2017 BONNIE ISIDRO, AGUSTIN Perez Ot Z90.6 ACQUIRED ABSENCE OF OTHER PARTS OF URINA 02/11/2017 FRANCIS FARLEY DO C Ot 654.23 PREV DELIVERY, ANTEPARTUM COND 02/11/2017 FRANCIS FARLEY DO Ot V72.63 PRE-PROCEDURAL LABORATORY EXAMINATION 02/11/2017 FRANCIS FARLEY DO Ot V74.8 SCREEN-BACTERIAL DIS NEC 02/11/2017 FRANCIS FARLEY DO Ot V22.1 SUPERVIS OTH NORMAL PREG 02/11/2017 FRANCIS FARLEY DO Ot V28.3 ENCOUNTER ROUTINE SCREEN FOR MALFORMATIO 02/11/2017 FRANCIS FARLEY DO Ot O24.410 GESTATIONAL DIABETES MELLITUS IN PREGNAN 02/11/2017 FRANCIS FARLEY DO Ot O34.21 MATERNAL CARE FOR SCAR FROM PREVIOUS ANGELICA 02/11/2017 FRANCIS FARLEY DO Ot Z3A.37 37 WEEKS GESTATION OF 02/20/2017 MOE IRBY APRN Ot J40 BRONCHITIS, NOT SPECIFIED ACUTE OR CH 02/20/2017 MOE IRBY APRN Ot J45.909 UNSPECIFIED ASTHMA, UNCOMPLICATED 02/20/2017 MOE IRBY APRN Ot R05 COUGH 02/20/2017 MOE IRBY APRN Ot Z87.59 PERSONAL HISTORY OF COMP OF PREG, CHLDBR 02/20/2017 MOE IRBY APRN Ot Z90.6 ACQUIRED ABSENCE OF OTHER PARTS OF URINA 02/20/2017 MARTINE HUMPHRIES FRANCIS C Ot 654.23 PREV DELIVERY, ANTEPARTUM COND 02/20/2017 FARLEY DO FRANCIS C Ot V72.63 PRE-PROCEDURAL LABORATORY EXAMINATION 02/20/2017 FARLEY DO FRANCIS C Ot V74.8 SCREEN-BACTERIAL DIS NEC 02/20/2017 FARLEY DO FRANCIS C Ot V22.1 SUPERVIS OTH NORMAL PREG 02/20/2017 FARLEY DO FRANCIS C Ot V28.3 ENCOUNTER ROUTINE SCREEN FOR MALFORMATIO 02/20/2017 FARLEY DO FRANCIS C Ot O24.410 GESTATIONAL DIABETES MELLITUS IN PREGNAN 02/20/2017 FARLEY DO FRANCIS C Ot O34.21 MATERNAL CARE FOR SCAR FROM PREVIOUS ANGELICA 02/20/2017 FARLEY DO FRANCIS C Ot Z3A.37 37 WEEKS GESTATION OF 02/20/2017 FARLEY DO FRANCIS C Ot 654.23 PREV DELIVERY, ANTEPARTUM COND 02/20/2017 FARLEY DO FRANCIS C Ot V72.63 PRE-PROCEDURAL LABORATORY EXAMINATION 02/20/2017 MARTINE DO FRANCIS C Ot V74.8 SCREEN-BACTERIAL DIS NEC 02/20/2017 MARTINE DO FRANCIS C Ot V22.1 SUPERVIS OTH NORMAL PREG 02/20/2017 MARTINE DO FRANCIS C Ot V28.3 ENCOUNTER ROUTINE SCREEN FOR MALFORMATIO 02/20/2017 MARTINE DO FRANCIS C Ot O24.410 GESTATIONAL DIABETES MELLITUS IN PREGNAN 02/20/2017 MARTINE DO FRANCIS C Ot O34.21 MATERNAL CARE FOR SCAR FROM PREVIOUS ANGELICA 02/20/2017 FARLEY FRANCIS C Ot Z3A.37 37 WEEKS GESTATION OF 02/24/2017 MOE IRBY APRN Ot J40 BRONCHITIS, NOT SPECIFIED ACUTE OR CH 02/24/2017 MOE IRBY APRN Ot J45.909 UNSPECIFIED ASTHMA, UNCOMPLICATED 02/24/2017 MOE IRBY APRN Ot R05 COUGH 02/24/2017 MOE IRBY APRN Ot Z87.59 PERSONAL HISTORY OF COMP OF PREG, CHLDBR 02/24/2017 MOE IRBY APRN Ot Z90.6 ACQUIRED ABSENCE OF OTHER PARTS OF URINA 03/07/2017 FARLEY DO FRANCIS C Ot 654.23 PREV DELIVERY, ANTEPARTUM COND 03/07/2017 HAI FARLEY DOA C Ot V72.63 PRE-PROCEDURAL LABORATORY EXAMINATION 03/07/2017 HAI FARLEY DOA C Ot V74.8 SCREEN-BACTERIAL DIS NEC 03/07/2017 HAI FARLEY DOA C Ot V22.1 SUPERVIS OTH NORMAL PREG 03/07/2017 MARTINE HUMPHRIES FRANCIS C Ot V28.3 ENCOUNTER ROUTINE SCREEN FOR MALFORMATIO 03/07/2017 MARTINE HUMPHRIES FRANCIS C Ot O24.410 GESTATIONAL DIABETES MELLITUS IN PREGNAN 03/07/2017 MARTINE HUMPHRIES FRANCIS C Ot O34.21 MATERNAL CARE FOR SCAR FROM PREVIOUS ANGELICA 03/07/2017 MARTINE HUMPHRIES FRANCIS C Ot Z3A.37 37 WEEKS GESTATION OF 03/07/2017 MOE IRBY TELEGRAPH MECHANIC Ot J45.909 UNSPECIFIED ASTHMA, UNCOMPLICATED 03/07/2017 MOE IRBY TELEGRAPH MECHANIC Ot R05 COUGH 03/07/2017 MOE IRBY TELEGRAPH MECHANIC Ot Z87.59 PERSONAL HISTORY OF COMP OF PREG, CHLDBR 03/07/2017 MOE IRBY TELEGRAPH MECHANIC Ot Z87.891 PERSONAL HISTORY OF NICOTINE DEPENDENCE 03/07/2017 FARLEY FRANCIS C Ot 654.23 PREV DELIVERY, ANTEPARTUM COND 03/07/2017 FARLEY FRANCIS C Ot V72.63 PRE-PROCEDURAL LABORATORY EXAMINATION 03/07/2017 FARLEY FRANCIS C Ot V74.8 SCREEN-BACTERIAL DIS NEC 03/07/2017 FARLEY FRANCIS C Ot V22.1 SUPERVIS OTH NORMAL PREG 03/07/2017 MARTINE HUMPHRIES FRANCIS C Ot V28.3 ENCOUNTER ROUTINE SCREEN FOR MALFORMATIO 03/07/2017 MARTINE HUMPHRIES FRANCIS C Ot O24.410 GESTATIONAL DIABETES MELLITUS IN PREGNAN 03/07/2017 FARLEY DO FRANCIS C Ot O34.21 MATERNAL CARE FOR SCAR FROM PREVIOUS ANGELICA 03/07/2017 FARLEY DO FRANCIS C Ot Z3A.37 37 WEEKS GESTATION OF 03/21/2017 FARLEY DO FRANCIS C Ot 654.23 PREV DELIVERY, ANTEPARTUM COND 03/21/2017 FARLEY DO FRANCIS C Ot V72.63 PRE-PROCEDURAL LABORATORY EXAMINATION 03/21/2017 FARLEY DO FRANCIS C Ot V74.8 SCREEN-BACTERIAL DIS NEC 03/21/2017 FRANCIS FARLEY DO Ot V22.1 SUPERVIS OTH NORMAL PREG 03/21/2017 FRANCIS FARLEY DO Ot V28.3 ENCOUNTER ROUTINE SCREEN FOR MALFORMATIO 03/21/2017 FRANCIS FARLEY DO Ot O24.410 GESTATIONAL DIABETES MELLITUS IN PREGNAN 03/21/2017 FRANCIS FARLEY DO Ot O34.21 MATERNAL CARE FOR SCAR FROM PREVIOUS ANGELICA 03/21/2017 FRANCIS FARLEY DO Ot Z3A.37 37 WEEKS GESTATION OF 03/24/2017 CAROL ISIDRO, KENRICK Salcedo Ot J45.909 UNSPECIFIED ASTHMA, UNCOMPLICATED 03/24/2017 CAROL ISIDRO, KENRICK Salcedo Ot M54.5 LOW BACK PAIN 03/24/2017 CAROL ISIDRO, KENRICK Salcedo Ot Z87.59 PERSONAL HISTORY OF COMP OF PREG, CHLDBR 03/24/2017 CAROL ISIDRO, KENRICK Salcedo Ot Z90.6 ACQUIRED ABSENCE OF OTHER PARTS OF URINA Procedures Code [place] [id number] URINE TEST (IN- HOUSE) 03/17/2012 74.1 LOW CERVICAL 10/16/2012 [id number] EXTRACTION OF POC, LOW CERVICAL, OPEN AP 02/28/2015 Results Test Result Range Complete urinalysis with reflex to culture - 09/02/16 13:05 Urine color determination YELLOW NRG Urine clarity determination CLEAR NRG Urine pH measurement by test strip 5 5-9 Specific gravity of urine by test strip 1.020 1.016- 1.022 Urine protein assay by test strip, semi-quantitative 1+ NEGATIVE Urine glucose detection by automated test strip NEGATIVE NEGATIVE Erythrocytes detection in urine sediment by light microscopy NEGATIVE NEGATIVE Urine ketones detection by automated test strip NEGATIVE NEGATIVE Urine nitrite detection by test strip NEGATIVE NEGATIVE Urine total bilirubin detection by test strip NEGATIVE NEGATIVE Urine urobilinogen measurement by automated test strip (mass/volume) NORMAL NORMAL Urine leukocyte esterase detection by dipstick 1+ NEGATIVE Automated urine sediment erythrocyte count by microscopy (number/high power field) NONE NRG Automated urine sediment leukocyte count by microscopy (number/high power field ) [HPF] NRG Bacteria detection in urine sediment by light microscopy FEW NRG Squamous epithelial cells detection in urine sediment by light microscopy 2-5 NRG Crystals detection in urine sediment by light microscopy NONE NRG Casts detection in urine sediment by light microscopy NONE NRG Mucus detection in urine sediment by light microscopy SMALL NRG Complete urinalysis with reflex to culture NO NRG Complete blood count (CBC) with automated white blood cell (WBC) differential - 03/07/17 21:21 Blood leukocytes automated count (number/volume) 12.7 10*3/uL 4.3-11.0 Blood erythrocytes automated count (number/volume) 4.39 10*6/uL 4.35-5.85 Venous blood hemoglobin measurement (mass/volume) 13.6 g/dL 11.5-16.0 Blood hematocrit (volume fraction) 40 % 35-52 Automated erythrocyte mean corpuscular volume 90 [foz_us] 80-99 Automated erythrocyte mean corpuscular hemoglobin (mass per erythrocyte) 31 pg 25-34 Automated erythrocyte mean corpuscular hemoglobin concentration measurement ( mass/volume) 34 g/dL 32-36 Automated erythrocyte distribution width ratio 12.8 % 10.0-14.5 Automated blood platelet count (count/volume) 281 10*3/uL 130-400 Automated blood platelet mean volume measurement 9.9 [foz_us] 7.4-10.4 Automated blood neutrophils/100 leukocytes 62 % 42-75 Automated blood lymphocytes/100 leukocytes 23 % 12-44 Blood monocytes/100 leukocytes 9 % 0-12 Automated blood eosinophils/100 leukocytes 6 % 0-10 Automated blood basophils/100 leukocytes 0 % 0-10 Blood neutrophils automated count (number/volume) 7.8 10*3 1.8-7.8 Blood lymphocytes automated count (number/volume) 3.0 10*3 1.0-4.0 Blood monocytes automated count (number/volume) 1.2 10*3 0.0-1.0 Automated eosinophil count 0.7 10*3/uL 0.0-0.3 Automated blood basophil count (count/volume) 0.0 10*3/uL 0.0-0.1 Encounters ACCT No. Visit Date/Time Discharge Status Pt. Type Provider Facility Loc./Unit Complaint [id number] 03/17/2012 12:00:00 03/17/2012 23:59:59 CLS Outpatient BLANCA EAGLE APRN [id number] 08/18/2012 10:37:00 Document Registration [id number] 07/13/2014 11:04:51 07/13/2014 23:59:59 CLS Outpatient Gulshan Sigala [id number] 03/29/2013 16:58:19 03/29/2013 23:59:59 CLS Outpatient MAURISIO DÍAZ [id number] 07/14/2013 14:40:30 Document Registration [id number] 03/21/2017 17:00:00 03/21/2017 17:49:00 DIS Outpatient CAROL ISIDRO, KENRICK Salcedo [facility] ER BACK PAIN [id number] 03/07/2017 20:35:00 03/07/2017 21:36:00 DIS Emergency MOE IRBY TELEGRAPH MECHANIC [facility] ER BRONCHITIS [id number] 02/20/2017 16:54:00 02/20/2017 17:34:00 DIS Emergency MOE IRBY TELEGRAPH MECHANIC [facility] ER BRONCHITIS [id number] 02/11/2017 19:04:00 02/11/2017 19:53:00 DIS Emergency BONNIE ISIDRO, AGUSTIN Perez [facility] ER COUGH,RUNNY NOSE [id number] 09/02/2016 11:51:00 09/02/2016 15:03:00 DIS Emergency SOCORRO JACKMAN [facility] ER L LOWER BACK PAIN [id number] 01/17/2016 18:45:00 01/17/2016 19:39:00 DIS Emergency BONNIE ISIDRO, AGUSTIN Perez [facility] ER BACK PAIN [id number] 02/28/2015 06:01:00 03/02/2015 11:15:00 DIS Inpatient FRANCIS FARLEY DO [facility] LDRP PREVIOUS SECTION [id number] 02/21/2015 14:16:00 02/21/2015 23:59:59 CLS Outpatient FRANCIS FARLEY DO [facility] PREOP [id number] 02/16/2015 13:38:00 02/16/2015 23:59:59 CLS Outpatient FRANCIS FARLEY DO [facility] RAD GESTATIONAL DIABETES [id number] 12/14/2014 13:22:00 12/14/2014 23:59:59 CLS Outpatient FRANCIS FARLEY DO [facility] RAD FOLLOW UP SURVEY [id number] 11/14/2014 14:52:00 11/14/2014 23:59:59 CLS Outpatient FRANCIS FARLEY DO [facility] RAD SURVEY [id number] 08/30/2014 19:33:00 08/30/2014 20:09:00 DIS Emergency LINN GUO DO [facility] ER RASH [id number] 12/23/2013 01:27:00 12/23/2013 02:13:00 DIS Emergency CHRISTINA ALONZO MD [facility] ER RASH,COUGH [id number] 04/20/2013 21:15:00 04/20/2013 23:20:00 DIS Emergency MOE IRBY APRN [facility] ER L SIDE PAIN; NO INJ [id number] 10/16/2012 06:15:00 10/18/2012 15:55:00 DIS Inpatient FRANCIS FARLEY DO [facility] WS PREVIOUS SECTION [id number] 10/12/2012 08:00:00 10/12/2012 23:59:59 CLS Outpatient FRANCIS FARLEY DO [facility] PREOP PREVIOUS SECTION [id number] 06/27/2012 11:26:00 Document Registration [id number] 01/07/2012 21:08:00 Document Registration [id number] 12/28/2011 13:17:00 Document Registration
[2017-03-28 10:23] LABS: BASOPHILS % (AUTO) 0 % (0-10); EOSINOPHILS # (AUTO) 0.2 10^3/uL (0.0-0.3); EOSINOPHILS % (AUTO) 2 % (0-10); LYMPHOCYTES # (AUTO) 0.4 X 10^3 (1.0-4.0); LYMPHOCYTES % (AUTO) 5 % (12-44); MEAN CORPUSCULAR HEMOGLOBIN 31 PG (25-34); MEAN CORPUSCULAR HGB CONC 34 G/DL (32-36); MEAN CORPUSCULAR VOLUME 90 FL (80-99); MEAN PLATELET VOLUME 10.1 FL (7.4-10.4); MONOCYTES # (AUTO) 0.5 X 10^3 (0.0-1.0); MONOCYTES % (AUTO) 7 % (0-12); NEUTROPHILS # (AUTO) 6.6 X 10^3 (1.8-7.8); NEUTROPHILS % (AUTO) 86 % (42-75); PLATELET COUNT 198 10^3/uL (130-400); RED BLOOD COUNT 4.36 10^6/uL (4.35-5.85); RED CELL DISTRIBUTION WIDTH 12.9 % (10.0-14.5); WHITE BLOOD COUNT 7.7 10^3/uL (4.3-11.0)
--- NOTE | 2017-03-28 10:36 | Diagnostic Imaging Report ---
INDICATION: Cough x3 days. COMPARISON: 03/07/2017. FINDINGS: Single frontal view of the chest demonstrates normal heart size and pulmonary vascularity. The lungs are well aerated and clear. No large pleural effusion or pneumothorax is seen. The visualized osseous structures show no acute abnormalities. IMPRESSION: 1. No acute cardiopulmonary process. Dictated by: Dictated on workstation # [id number]
[2017-03-28 10:58] LABS: EOSINOPHILS % (MANUAL) 2 %; LYMPHOCYTES % (MANUAL) 5 %; NEUTROPHILS % (MANUAL) 90 %
--- NOTE | 2017-03-28 11:22 | ED Cough/URI ---
General Chief Complaint: Cough/Cold/Flu Symptoms Stated Complaint: COUGH Nursing Triage Note: AMB TO ROOM C/O COUGH FOR 3 DAYS UNABLE TO GET APPOINTMENT AT [facility]. TOOK 600MG OF IBUPROFEN AT TODAY Source: patient Exam Limitations: no limitations History of Present Illness Time seen by provider: 11:18 Initial Comments The patient is a 27-year-old white female who reports that she has had a cough and fever for 3 days. She reports muscle aches as well. There is no particular sputum production. No one at home is ill. She is exposed to the public at work. She took 600 mg of ibuprofen prior to coming here today. Timing/Duration: week Severity/Quality: no cough, productive cough, sputum Prior Episodes/Possible Cause: no prior episodes Associated Symptoms: denies symptoms Did not get flu shot this year Allergies and Home Medications Allergies Coded Allergies: No Known Drug Allergies (Unverified , 04/20/13) Home Medications Albuterol Sulfate 1 Puff Puff, 1-4 PUFF IH Q4H PRN for SHORTNESS OF BREATH, #1 1 PUFF = 90 MCG Prescribed by: AGUSTIN JANSEN on 02/11/171949 Azithromycin 250 Mg Tablet, 250 MG PO UD, #6 TAKE 2 TABLETS ON DAY ONE THEN TAKE 1 TABLET DAILY FOR FOUR MORE DAYS Prescribed by: MOE IRBY on 02/20/171711 Benzonatate 100 Mg Capsule, 100 MG PO TID PRN for COUGH, #21 Prescribed by: MOE IRBY on 02/20/171711 Cyclobenzaprine HCl 10 Mg Tablet, 10 MG PO Q8H PRN for SPASMS, #14 Ref 0 Prescribed by: SOCORRO MEDINA on 09/02/161454 Levofloxacin 500 Mg Tablet, 500 MG PO DAILY, #5 Prescribed by: MOE IRBY on 03/07/172053 Methylprednisolone 4 Mg Tab.ds.pk, 4 MG PO UD, #1 Prescribed by: MOE IRBY on 03/07/172053 Prednisone 20 Mg Tab, 40 MG PO DAILY, #10 Ref 0 Prescribed by: SOCORRO MEDINA on 09/02/161454 Prednisone 20 Mg Tab, 20 MG PO DAILY, #4 Prescribed by: AGUSTIN JANSEN on 02/11/171949 Promethazine HCl/Codeine 5 Ml Syrup, 7.5 ML PO Q6H PRN for COUGH, #120 Prescribed by: MOE IRBY on 02/20/17 1712 Tramadol HCl 50 Mg Tablet, 50 MG PO Q4H PRN for pain, #14 Ref 0 Prescribed by: SOCORRO MEDINA on 09/02/16 1455 Constitutional: see HPI EENTM: hoarseness, throat pain Respiratory: cough, phlegm Cardiovascular: no symptoms reported Gastrointestinal: no symptoms reported Genitourinary: no symptoms reported Musculoskeletal: muscle pain, muscle stiffness Skin: no symptoms reported Psychiatric/Neurological: No Symptoms Reported Hematologic/Lymphatic: No Symptoms Reported Immunological/Allergic: no symptoms reported Past Bupgjnj-Tbuyoc-Ikbxlz Hx Patient Social History Alcohol Use: Denies Use Recreational Drug Use: No Smoking Status: Current Everyday Smoker Recent Foreign Travel: No Contact w/Someone Who Travel: No Recent Infectious Disease Expo: No Recent Hopitalizations: No Immunizations Up To Date Tetanus Booster (TDap): Less than 5yrs Date of Influenza Vaccine: Jan 05, 2013 Surgeries History of Surgeries: Yes (OVARIAN CYSTECTOMY, ) Surgeries: Section Respiratory History of Respiratory Disorde: Yes Respiratory Disorders: Asthma Cardiovascular History of Cardiac Disorders: No Neurological History of Neurological Disord: No Reproductive System Hx Reproductive Disorders: No Sexually Transmitted Disease: No HIV/AIDS: No Female Reproductive Disorders: Denies Genitourinary History of Genitourinary Disor: No Gastrointestinal History of Gastrointestinal Di: No Musculoskeletal History of Musculoskeletal Dis: No Endocrine History of Endocrine Disorders: Yes (THYROID- USED TO TAKE MEDS, GESTATIONAL DIABETES) HEENT History of HEENT Disorders: No Cancer History of Cancer: No Psychosocial History of Psychiatric Problem: No Integumentary History of Skin or Integumenta: No Blood Transfusions History of Blood Disorders: No Adverse Reaction to a Blood Tr: No Family Medical History Significant Family History: No Pertinent Family Hx Family Medial History: Patient reports no known family medical history. Physical Exam Vital Signs Vital Sign - Last 12Hours 03/28/17 08:48 Temp 101.4 Pulse 107 Resp 18 B/P (MAP) 153/90 (111) Pulse Ox 98 O2 Delivery Room Air Capillary Refill : Less Than 3 Seconds General Appearance: mild distress Eyes: Bilateral Eye Normal Inspection HEENT: TMs normal Respiratory: chest non-tender, lungs clear, normal breath sounds, no respiratory distress, no accessory muscle use, respiratory distress, other ( harsh cough) Cardiovascular: normal peripheral pulses, regular rate, rhythm, no edema, no gallop, no JVD, no murmur Gastrointestinal: normal bowel sounds, non tender, soft, no organomegaly, no pulsatile mass Extremities: normal range of motion, non-tender, normal inspection, no pedal edema, no calf tenderness, normal capillary refill, pelvis stable 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, no motor/sensory deficits, alert, normal mood/affect, oriented x 3 Skin: normal color, warm/dry, cyanosis, cool, diaphoresis, damp Lymphatic: no adenopathy, axilla node tender (R), axilla node tender (L), inguinal node tender (R), inguinal node tender (L) Progress/Results/Core Measures Suspected Sepsis Recent Fever Within 48 Hours: No Infection Criteria Present: None New/Unexplained Altered Menta: No Sepsis Screen: No Definite Risk Sepsis Diagnosis: SIRS Temperature:101.4 Pulse: 107 Respiratory Rate: 18 Laboratory Tests 03/28/17 10:17: White Blood Count 7.7 Blood Pressure 153 /90 Mean: 111 Laboratory Tests 03/28/17 10:17: Platelet Count 198 Results/Orders Lab Results Laboratory Tests Test 03/28/17 10:17 Range/Units White Blood Count 7.7 4.3-11.0 10^3/uL Red Blood Count 4.36 4.35-5.85 10^6/uL Hemoglobin 13.3 11.5-16.0 G/DL Hematocrit 39 35-52 % Mean Corpuscular Volume 90 80-99 FL Mean Corpuscular Hemoglobin 31 25-34 PG Mean Corpuscular Hemoglobin Concent 34 32-36 G/DL Red Cell Distribution Width 12.9 10.0-14.5 % Platelet Count 198 130-400 10^3/uL Mean Platelet Volume 10.1 7.4-10.4 FL Neutrophils (%) (Auto) 86 H 42-75 % Lymphocytes (%) (Auto) 5 L 12-44 % Monocytes (%) (Auto) 7 0-12 % Eosinophils (%) (Auto) 2 0-10 % Basophils (%) (Auto) 0 0-10 % Neutrophils # (Auto) 6.6 1.8-7.8 X 10^3 Lymphocytes # (Auto) 0.4 L 1.0-4.0 X 10^3 Monocytes # (Auto) 0.5 0.0-1.0 X 10^3 Eosinophils # (Auto) 0.2 0.0-0.3 10^3/uL Basophils # (Auto) 0.0 0.0-0.1 10^3/uL Neutrophils % (Manual) 90 % Lymphocytes % (Manual) 5 % Monocytes % (Manual) 3 % Eosinophils % (Manual) 2 % Blood Morphology Comment NORMAL Micro Results Microbiology 03/28/17 Influenza Types A,B Antigen (KYUNG) - Final, Complete My Orders Orders - STACY BANKS MD Cbc With Automated Diff (03/28/17 10:06) Influenza A And B Antigens (03/28/17 10:06) Chest 1 View, Ap/Pa Only (03/28/17 10:06) Manual Differential (03/28/17 10:17) Vital Signs/I&O Vital Sign - Last 12Hours 03/28/17 08:48 Temp 101.4 Pulse 107 Resp 18 B/P (MAP) 153/90 (111) Pulse Ox 98 O2 Delivery Room Air Capillary Refill : Less Than 3 Seconds Blood Pressure Mean: 111 Departure Impression Impression: Primary Impression: influenza A Disposition: 01 HOME, SELF-CARE Condition: Stable/Unchanged Departure-Patient Inst. Decision time for Depature: 11:21 Referrals: [facility] (PCP/Family) Primary Care Physician Add. Discharge Instructions: All discharge instructions reviewed with patient and/or family. Voiced understanding. Rest. Lots of liquids. Ibuprofen 600 mg 3-4 times daily as needed for pain and fever. The expected duration of this illness would be 7-10 days from now. STACY BANKS MD Mar 28, 2017 11:22
[2017-03-28 11:26] VITALS: BP 153/90
== END 2017-03-28 11:26 | disposition home or self-care (01) ==
LOC: EDUNIT# 08:45 → ER 08:47
DX: J10.1 Influenza due to other identified influenza virus with other respiratory manifestations (principal); F17.200 Nicotine dependence, unspecified, uncomplicated; J45.909 Unspecified asthma, uncomplicated; E07.9 Disorder of thyroid, unspecified; Z98.890 Other specified postprocedural states
CPT/HCPCS: 36415; 71010; 85007; 85027; 87804; 99283

== ENCOUNTER 2018-02-28 21:09 | Emergency (ER) | payer OTHER ==
[~2018-02-28] VITALS: Ht 160 cm; Wt 124.7 kg
[~2018-02-28 21:09] MED LIST changes: -BENZ-13 PO; +BENZ100C18 PO; -FERR-74 PO; +FERR325T18 PO; -HYDR-3812 PO
[2018-02-28] MEDS ORDERED: ACET-789 PO (21:59)
--- NOTE | 2018-02-28 22:11 | ED Cough/URI ---
General Chief Complaint: Cough/Cold/Flu Symptoms Stated Complaint: CONGESTION,COUGH,SOA Nursing Triage Note: cough Source: patient Exam Limitations: no limitations History of Present Illness Date Seen by Provider: Feb 28, 2018 Time Seen by Provider: 22:09 Initial Comments Lower chest wall pain. She has associated nasal congestion and shortness of breath. She also has a cough. The cough is persistent but nonproductive. No fevers or chills. Occasional sore throat. On 02/23/18 she was diagnosed with bronchitis, given a shot of steroids. She was then given an additional shot of steroids last week and she is taking prednisone at home. She states the pain in the left lateral chest is worse with deep breathing and constant. She denies any unilateral leg swelling. She is not on oral contraceptives. No known history of clotting disorders. Timing/Duration: constant Severity/Quality: moderate, dry cough Associated Symptoms: cough Allergies and Home Medications Allergies Coded Allergies: No Known Drug Allergies (Unverified , 04/20/13) Home Medications Albuterol Sulfate 1 Puff Puff, 1-4 PUFF IH Q4H PRN for SHORTNESS OF BREATH 1 PUFF = 90 MCG Prescribed by: AGUSTIN JANSEN on 02/11/17 1950 Methylprednisolone 4 Mg Tab.ds.pk, 4 MG PO UD Prescribed by: MOE IRBY on 03/07/172053 Patient Home Medication List Home Medication List Reviewed: Yes Review of Systems Review of Systems Constitutional: see HPI EENTM: see HPI Respiratory: see HPI, cough Cardiovascular: no symptoms reported Genitourinary: no symptoms reported Musculoskeletal: no symptoms reported Skin: no symptoms reported Psychiatric/Neurological: No Symptoms Reported Hematologic/Lymphatic: No Symptoms Reported Past Aqqbtub-Fmngap-Kccqhj Hx Patient Social History Alcohol Use: Denies Use Recreational Drug Use: No Smoking Status: Former Smoker 2nd Hand Smoke Exposure: No Recent Foreign Travel: No Contact w/Someone Who Travel: No Recent Infectious Disease Expo: No Recent Hopitalizations: No Immunizations Up To Date Tetanus Booster (TDap): Less than 5yrs Date of Influenza Vaccine: Jan 05, 2013 Seasonal Allergies Seasonal Allergies: No Past Medical History Surgeries: Yes (OVARIAN CYST) Section Respiratory: Yes Asthma Cardiac: No Neurological: No : No (denies) Reproductive Disorders: No Female Reproductive Disorders: Denies Sexually Transmitted Disease: No HIV/AIDS: No Genitourinary: No Gastrointestinal: No Musculoskeletal: No Endocrine: No HEENT: No Cancer: No Psychosocial: No Integumentary: No Blood Disorders: No Adverse Reaction/Blood Tranf: No Family Medical History Patient reports no known family medical history. No Pertinent Family Hx Physical Exam Vital Signs - First Documented 02/28/18 21:45 Temp 98.6 Pulse 89 Resp 18 B/P (MAP) 133/84 (100) Pulse Ox 97 O2 Delivery Room Air Capillary Refill : Less Than 3 Seconds Height: 5'3.00" Weight: 275lbs. 0oz. 124.635467wi; 46.00 BMI Method:Stated General Appearance: WD/WN, no apparent distress Eyes: Bilateral Eye Normal Inspection, Bilateral Eye PERRL, Bilateral Eye EOMI HEENT: PERRL/EOMI, normal ENT inspection, TMs normal Neck: non-tender, full range of motion Respiratory: lungs clear, normal breath sounds, no respiratory distress, no accessory muscle use Cardiovascular: regular rate, rhythm, no murmur Gastrointestinal: normal bowel sounds, non tender, soft Extremities: normal range of motion, non-tender Neurologic/Psychiatric: alert, normal mood/affect, oriented x 3 Skin: normal color, warm/dry Progress/Results/Core Measures Suspected Sepsis Recent Fever Within 48 Hours: No Infection Criteria Present: None New/Unexplained Altered Menta: No Sepsis Screen: No Definite Risk SIRS Temperature:98.6 Pulse: 89 Respiratory Rate: 18 Blood Pressure 133 /84 Mean: 100 Results/Orders My Orders Orders - MOE IRBY APRN Chest Pa/Lat (2 View) (02/28/18 22:07) Ketorolac Injection (Toradol Injection) (02/28/18 22:15) Orphenadrine Injection (Norflex Injectio (02/28/18 22:15) Rx-Acetaminophen/Codeine (Rx-Tylenol #3) (02/28/18 22:15) Vital Signs/I&O 02/28/18 21:45 Temp 98.6 Pulse 89 Resp 18 B/P (MAP) 133/84 (100) Pulse Ox 97 O2 Delivery Room Air Capillary Refill : Less Than 3 Seconds Blood Pressure Mean: 100 Departure Impression Primary Impression: Bronchitis Additional Impression: Pleuritic chest pain Disposition: 01 HOME, SELF-CARE Condition: Stable Departure-Patient Inst. Decision time for Depature: 22:11 Referrals: [facility] (PCP/Family) Primary Care Physician Patient Instructions: Acute Bronchitis, Adult (DC) Add. Discharge Instructions: 1. Continue taking the prednisone at home. Cough medication as directed. Antibiotic as directed starting tomorrow. Return to ER for any concerns. All discharge instructions reviewed with patient and/or family. Voiced understanding. Scripts Azithromycin (Azithromycin) 250 Mg Tablet 250 MG PO UD, #6 TAB TAKE 2 TABLETS ON DAY ONE THEN TAKE 1 TABLET DAILY FOR FOUR MORE DAYS Prov: MOE IRBY APRN 02/28/18 Work/School Note: Work Release Form Date Seen in the Emergency Department: Feb 28, 2018 Return to Work: Mar 02, 2018 MOE IRBY APRN Feb 28, 2018 22:11
[2018-02-28] MEDS ORDERED: KETOROLAC 60 MG/2 ML VIAL IM ONE (22:15)
[2018-02-28] MEDS ORDERED: ORPHENADRINE 60 MG/2 ML (NORFLEX) AMP IM ONE (22:15)
[2018-02-28] MEDS ORDERED: RX-ACETAMINOPHEN/CODEINE TAB PPK #4 PO SCH (22:15)
[2018-02-28] MEDS ORDERED: AZIT250T12 PO (22:24)
[2018-02-28 22:42] VITALS: BP 133/84
--- NOTE | 2018-03-01 05:41 | Diagnostic Imaging Report ---
Examination: Chest, PA and lateral views Indication: Cough and congestion. Comparison: Multiple priors, most recent on 03/28/2017. Findings: The lungs are clear and the pulmonary vasculature is normal. No pneumothorax or pleural effusion. The cardiomediastinal silhouette is normal. No acute osseous abnormality. Impression: No acute chest disease. No significant change from prior. Dictated by: Dictated on workstation # [id number]
== END 2018-02-28 22:42 | disposition home or self-care (01) ==
LOC: EDUNIT# 21:09 → ER 21:10
DX: J45.909 Unspecified asthma, uncomplicated (principal); R07.81 Pleurodynia; Z79.51 Long term (current) use of inhaled steroids; Z79.52 Long term (current) use of systemic steroids; Z87.891 Personal history of nicotine dependence; Z98.890 Other specified postprocedural states
CPT/HCPCS: 71046; 96372

== ENCOUNTER 2018-03-12 22:16 | Emergency (ER) | payer SELFPAY ==
[~2018-03-12] VITALS: Ht 162.6 cm; Wt 124.7 kg
[~2018-03-12 22:16] MED LIST changes: +ACET-789 PO
--- OUTSIDE RECORDS SUMMARY | 2018-03-12 22:22 | XMS REPORT ---
Author Author JUAN DÍAZ [facility] Address [address] [place], [place] [id number] Care Team Providers Care Roller Inspector Name Role Phone JUNA DÍAZ PCP JUAN DÍAZ PreferredProvider Allergies and Adverse Reactions Name Reaction Notes NO KNOWN DRUG ALLERGIES Plan of Treatment Not available. Medications Active Name Start Date Estimated Completion Date SIG Comments Cipro Oral Tablet 500 mg 04/05/2013 take 1 tablet (500 mg) by oral route 2 times per day Diflucan oral tablet 150 mg 07/13/2014 take 1 tablet (150 mg) by oral route once every 3 days x 3 doses promethazine-codeine 6.25-10 mg/5 mL oral syrup 03/02/2018 take 5 milliliters by oral route every 6 hours as needed, not to exceed 30 mL in 24 hours doxycycline hyclate 100 mg oral tablet 03/02/2018 take one tablet twice daily for 15 days Name Start Date Expiration Date SIG Comments Albuterol Sulfate Inhalation HFA Aerosol Inhaler 90 mcg/Actuation 04/05/2009 inhale 1 - 2 puffs by inhalation route every 6 hours as needed Zyrtec Oral Tablet, Chewable 10 mg 10/26/2009 chew 1 tablet (10 mg) by oral route once daily Sprintec (28) Oral Tablet 0.25-35 mg-mcg 02/14/2010 03/14/2010 [facility] - USE DIRECTED Zithromax Z-Robb Oral Tablet 250 mg 04/19/2010 04/24/2010 take 2 tablets (500 mg) by oral route once daily for 1 day then 1 tablet (250 mg) by oral route once daily for 4 days Keflex Oral Capsule 500 mg 05/11/2010 05/21/2010 one PO TID Cephalexin Oral Tablet 500 mg 06/14/2010 one po tid nystatin-triamcinolone Topical Ointment 100,000-0.1 unit/gram-% 08/01/2010 apply to affected area by external route 2 times a day Cipro Oral Tablet 500 mg 05/09/2011 take 1 tablet (500 mg) by oral route 2 times per day Medrol (Robb) Oral Tablets, Dose Pack 4 mg 05/09/2011 take as directed Phenergan-Codeine Oral Syrup 6.25-10 mg/5 mL 05/09/2011 take 5 milliliters by oral route 4 times a day Celexa Oral Tablet 20 mg 06/27/2011 take 1 tablet (20 mg) by oral route once daily in the evening Ambien Oral Tablet 10 mg 06/27/2011 take 1/2 to 1 tablet as needed for insonmia Symbicort inhalation HFA aerosol inhaler 160-4.5 mcg/actuation 04/05/2013 inhale 1 puff by inhalation route 2 times a day for 30 days ketoconazole topical cream 2 % 07/13/2014 08/10/2014 apply to the affected area( s) by topical route once daily for 28 days Discontinued Name Start Date Discontinued Date SIG Comments Phenergan-Codeine Oral milliliter 03/15/2010 06/14/2010 Take 5 milliliterby oral route 4 times a day Phenergan-Codeine Oral milliliter 05/11/2010 06/14/2010 Take 5 milliliterby oral route 4 times a day Phenergan-Codeine Oral Syrup 6.25-10 mg/5 mL 04/05/2013 03/02/2018 take 5 milliliters by oral route 4 times a day Problem List Description Status Onset Thyroid disorder Active Vital Signs Date Time BP-Sys(mm[Hg] BP-Cherie(mm[Hg]) HR(bpm) RR(rpm) Temp WT HT HC BMI BSA BMI Percentile O2 Sat(%) 02/25/2018 10:04:00 AM 124 mmHg 78 mmHg 70 bpm 18 rpm 98.8 F 234 lbs 66 in 37.7682 kg/m 2.2232 m 98 % 07/13/2014 10:19:00 AM 125 mmHg 70 mmHg 97 bpm 16 rpm 97.5 F 242 lbs 97 % 03/29/2013 4:13:00 PM 128 mmHg 64 mmHg 90 bpm 20 rpm 98 F 253 lbs 64 in 43.4269 kg/m 2.2764 m 100 % 06/27/2011 3:20:00 PM 140 mmHg 76 mmHg 84 bpm 223 lbs 64 in 38.28 kg/m2 2.14 m2 05/09/2011 10:59:00 AM 116 mmHg 68 mmHg 80 bpm 233 lbs 64 in 39.99 kg/m2 2.18 m2 08/01/2010 2:24:00 PM 112 mmHg 60 mmHg 76 bpm 252 lbs 06/14/2010 2:09:00 PM 124 mmHg 82 mmHg 76 bpm 253 lbs 04/19/2010 3:06:00 PM 130 mmHg 82 mmHg 76 bpm 250 lbs 02/08/2010 2:14:00 PM 128 mmHg 72 mmHg 80 bpm 251 lbs 10/26/2009 2:52:00 PM 118 mmHg 70 mmHg 84 bpm 261.562 lbs 05/24/2009 4:13:00 PM 124 mmHg 80 mmHg 120 bpm 98.9 F 251.25 lbs 04/04/2009 11:44:00 AM 122 mmHg 74 mmHg 94 bpm 255 lbs Social History Name Description Comments Tobacco Current every day smoker Alcohol Use - Occasional History of Procedures Date Ordered Description Order Status 02/25/2018 12:00 AM THER/PROPH/DIAG INJ SC/IM Reviewed 04/05/2009 12:00 AM THER/PROPH/DIAG INJ SC/IM Reviewed 04/05/2009 12:00 AM Decadron Inj.1mg-([facility]) [facility] #[id number] Reviewed 04/05/2009 12:00 AM Depo-Medrol 80 Mg Im/[facility] [id number] Reviewed 02/08/2010 12:00 AM THER/PROPH/DIAG INJ SC/IM Reviewed 02/08/2010 12:00 AM Decadron Inj.8mg-([facility]) [facility] #[id number] Reviewed 02/08/2010 12:00 AM Depo-Medrol 80 Mg Im/[facility] [id number] Reviewed 02/08/2010 12:00 AM Rocephin, Per 250MG - 1 Gram Vial Reviewed 04/19/2010 12:00 AM THER/PROPH/DIAG INJ SC/IM Reviewed 04/19/2010 12:00 AM Decadron Inj.8mg-([facility]) [facility] #[id number] Reviewed 04/19/2010 12:00 AM Depo-Medrol 80 Mg Im/[facility] [id number] Reviewed 05/10/2009 12:00 AM URINALYSIS AUTO W/O SCOPE Reviewed 05/10/2009 12:00 AM URINALYSIS AUTO W/O SCOPE Reviewed Results Summary Not available. History Of Immunizations Not available. History of Past Illness Name Date of Onset Comments Nasopharyngitis, Acute (Common Cold) Apr 04 2009 11:46AM Cough Apr 04 2009 11:46AM Obesity Apr 04 2009 11:46AM Back Pain May 10 2009 4:22PM Low Back Pain May 24 2009 4:15PM Sprain/Strain May 24 2009 4:15PM Thyroid disorder Nasopharyngitis, Acute (Common Cold) Oct 26 2009 2:54PM Cough Oct 26 2009 2:54PM Sinusitis, Acute Oct 26 2009 2:54PM Eustachian Tube Dysfunction Feb 08 2010 2:14PM Sinusitis, Acute Feb 08 2010 2:14PM Seasonal Allergies Feb 08 2010 2:14PM Pharyngitis, Acute Feb 08 2010 2:14PM Cough Apr 19 2010 3:05PM Pharyngitis, Acute Apr 19 2010 3:05PM Post-nasal drainage Apr 19 2010 3:05PM Cough Jun 14 2010 2:10PM Sinusitis, Acute Jun 14 2010 2:10PM Post-nasal drainage Jun 14 2010 2:10PM Fatigue Aug 01 2010 2:24PM Dermatophytosis Aug 01 2010 2:24PM Weight Gain, Abnormal Aug 01 2010 2:24PM Cough May 09 2011 11:00AM Post-nasal drainage May 09 2011 11:00AM Upper Respiratory Infection May 09 2011 11:00AM Depressive Disorder Jun 27 2011 3:22PM Insomnia Jun 27 2011 3:22PM Cough Mar 29 2013 4:14PM Bronchitis, Acute Mar 29 2013 4:14PM Upper Respiratory Infection Mar 29 2013 4:14PM Fungal infection of skin Jul 13 2014 10:19AM Cough Feb 25 2018 10:06AM Upper respiratory tract infection, unspecified type Feb 25 2018 10:06AM Sinus pressure Feb 25 2018 10:06AM Payers Insurance Name Company Name Plan Name Plan Number Policy Number Policy Group Number Start Date [employer] [id number] N /A [facility] tracx [id number] N/A Alpesh HSU [id number] Saturday, 2013 History of Encounters Visit Date Visit Type Provider 02/25/2018 Office visit JUAN DÍAZ PA 07/13/2014 Office visit Gulshan Sigala APRN 03/29/2013 Office visit JUAN DÍAZ PA 06/27/2011 Office visit JUAN DÍAZ PA 05/09/2011 Office visit JUAN DÍAZ PA 08/01/2010 Office visit Juan Díaz PA-C 06/14/2010 Office visit Juan Díaz PA-C 04/19/2010 Office visit Juan Díaz PA-C 02/08/2010 Office visit Juan Díaz PA-C 10/26/2009 Office visit Juan Díaz PA-C 05/24/2009 Office visit Juan Díaz PA-C 05/11/2009 Office visit Juan Díaz PA-C 05/10/2009 Laboratory Juan Díaz PA-C 05/10/2009 Voided Juan Díaz PA-C 04/04/2009 Office visit Juan Díaz PA-C 02/08/2009 Nurse visit Juan Díaz PA-C 01/05/2009 Office visit Juan Díaz PA-C 11/28/2008 Office visit JUAN FREDERICK
--- OUTSIDE RECORDS SUMMARY | 2018-03-12 22:23 | XMS REPORT ---
Author Author HONEY ARENAS Organization [facility] Address [address] [place] [address] Care Team Providers Care Director Of Corporate Responsibility Name Role Phone HONEY ARENAS Unavailable PROBLEMS No Known Problems ALLERGIES No Known Allergies ENCOUNTERS Encounter Location Date Diagnosis [facility] [address] [phone] Feb, Bronchitis J40 and BMI 45.0-49.9, adult Z68.42 [facility] [address] [address] Jan, Acute suppurative otitis media of left ear without spontaneous rupture of tympanic membrane, recurrence not specified H66.002 [facility] [id number] [place] [phone] 07 Apr, 2015 Back pain M54.9 and Back pain with left-sided sciatica M54.32 [facility] [id number] [place] [address] 14 Jul, 2014 [facility] [id number] [place] [phone] Jul, [facility] [id number] [place] [phone] August, [facility] [address] [address] Apr, [facility] [address] [address] Mar, [facility] [address] [address] Mar, [facility] [address] [facility] [id number] [address] Nov, [facility] [address] [facility] [id number], [place] [address] Oct, [facility] [address] [facility] [id number], [place] [address] Oct, [facility] [address] [facility] [id number], [place] [address] Oct, [facility] [address] [facility] [id number], [place] [address] Oct, IMMUNIZATIONS Vaccine Route Administration Date Status DEXAMETHASONE 4MG/ML (PER 1 MG) IM Intramuscular Feb 23, 2018 Administered SOCIAL HISTORY Never Assessed REASON FOR VISIT congestion, cough and runny nose x 3-4 days. Daughter was diagnosed with bronchitis and she thinks she may have the same thing.--MICHAEL Pagan PLAN OF CARE Activity Details Follow Up if not improving or with pcp for regular fu Reason: VITAL SIGNS Height 64 in 2018-02-23 Weight 282.8 lbs 2018-02-23 Temperature 98.4 degrees Fahrenheit 2018-02-23 Heart Rate 68 bpm 2018-02-23 Respiratory Rate 20 2018-02-23 BMI 48.54 kg/m2 2018-02-23 Blood pressure systolic 126 mmHg 2018-02-23 Blood pressure diastolic 60 mmHg 2018-02-23 MEDICATIONS Medication Instructions Dosage Frequency Start Date End Date Duration Status ProAir HFA 108 (90 Base) MCG/ACT Inhalation every 6 hrs prn wheezing 2 puffs as needed Active RESULTS No Results PROCEDURES Procedure Date Ordered Result Body Site DEXAMETHASONE 4MG/ML (PER 1 MG) Feb 23, 2018 THER/PROPH/DIAG INJ, SC/IM Feb 23, 2018 INSTRUCTIONS MEDICATIONS ADMINISTERED No Known Medications MEDICAL (GENERAL) HISTORY Type Description Date Surgical History C section x 3 02/2015 Surgical History ovarian cyst removal Hospitalization History childbirth
--- OUTSIDE RECORDS SUMMARY | 2018-03-12 22:24 | XMS REPORT | Continuity of Care Document ---
Author Author [facility] Organization [facility] Address Unknown Phone Unavailable Allergies Active Description Code Type Severity Reaction Onset Reported/Identified Relationship to Patient Clinical Status Yes No Known Drug Allergies [id number] Drug Allergy Unknown N/A 04/20/2013 Medications There [...] 648.41 MENTAL DISORDER-DELIVER 10/18/2012 FRANCIS FARLEY DO C Ot 654.21 PREV DELIVRY W/ OR W/O MENT ANT 10/18/2012 MARTINE HUMPHRIES FRANCIS Rhoda Ot V03.82 PROPHYLACTIC VACC AGAINST STREPTOCOCCUS 10/18/2012 MARTINE HUMPHRIES FRANCIS Rhoda Ot V06.1 [id number], COMBINED [ 10/18/2012 FRANCIS FARLEY DO Rhoda Ot V27.0 DELIVER-SINGLE LIVEBORN 04/20/2013 MOE IRBY [employer] DEVELOPER Ot 490 BRONCHITIS NOS 04/20/2013 MOE IRBY [employer] DEVELOPER Ot 786.50 CHEST PAIN NOS 04/20/2013 MOE IRBY [employer] DEVELOPER Ot 786.52 PAINFUL RESPIRATION 12/23/2013 CHERI ISIDRO, CHRISTINA Carbone Ot 708.9 URTICARIA NOS 08/30/2014 LINN GUO DO Ot 041.10 BACTERIAL INFEC DUE TO UNSPEC STAPHYLOCO 08/30/2014 LINN GUO DO Ot 110.2 DERMATOPHYTOSIS OF HAND 08/30/2014 LINN GUO DO Ot 782.1 NONSPECIF SKIN ERUPT NEC 11/29/2014 MARTINE HUMPHRIES FRANCIS C Ot V22.1 12/28/2014 FARLEY DO FRANCIS C Ot V28.3 02/16/2015 FARLEY DO FRANCIS C Ot V22.1 02/16/2015 FARLEY DO, FRANCIS C Ot V28.3 02/16/2015 FARLEY DO, FRANCIS C Ot V22.1 02/16/2015 FARLEY DO, FRANCIS C Ot V28.3 02/17/2015 FARLEY DO FRANCIS C Ot O24.410 02/17/2015 FARLEY DO, FRANCIS C Ot O34.21 02/17/2015 FARLEY DO, FRANCIS C Ot Z3A.37 02/17/2015 FARLEY DO, FRANCIS C Ot O24.410 02/17/2015 FARLEY DO, FRANCIS C Ot O34.21 02/17/2015 FARLEY DO, FRANCIS C Ot Z3A.37 02/21/2015 FARLEY DO, FRANCIS C Ot V22.1 02/21/2015 FARLEY DO, FRANCIS C Ot V28.3 02/21/2015 FARLEY DO, FRANCIS C Ot O24.410 02/21/2015 FARLEY DO, FRANCIS C Ot O34.21 02/21/2015 FARLEY DO, FRANCIS C Ot Z3A.37 03/02/2015 FARLEY DO, FRANCIS C Ot O24.419 GESTATIONAL DIABETES MELLITUS IN PREGNAN 03/02/2015 FARLEY DO FRANCIS C Ot O34.21 MATERNAL CARE FOR SCAR FROM PREVIOUS ANGELICA 03/02/2015 FARLEY DO FRANCIS C Ot Z23 ENCOUNTER FOR IMMUNIZATION 03/02/2015 FARLEY DO FRANCIS C Ot Z37.0 SINGLE LIVE 03/02/2015 FARLEY [...] C Ot V72.63 PRE-PROCEDURAL LABORATORY EXAMINATION 10/03/2015 MARTINE HUMPHRIES FRANCIS C Ot V74.8 SCREEN-BACTERIAL DIS NEC 10/03/2015 MARTINE HUMPHRIES FRANCIS C Ot V22.1 SUPERVIS OTH NORMAL PREG 10/03/2015 MARTINE HUMPHRIES FRANCIS C Ot V28.3 ENCOUNTER ROUTINE SCREEN FOR MALFORMATIO 10/03/2015 FARLEY DO FRANCIS C Ot O24.410 GESTATIONAL DIABETES MELLITUS IN PREGNAN 10/03/2015 FARLEY DO FRANCIS C Ot O34.21 MATERNAL CARE FOR SCAR FROM PREVIOUS ANGELICA 10/03/2015 FARLEY DO FRANCIS C Ot Z3A.37 37 WEEKS GESTATION OF 10/03/2015 FARLEY FRANCIS C Ot V22.1 SUPERVIS OTH NORMAL PREG 10/04/2015 MOE IRBY APRN Ot 490 BRONCHITIS NOS 10/04/2015 MOE IRBY SALESFORCE DEVELOPER Ot 786.50 CHEST PAIN NOS 10/04/2015 MOE IRBY [employer]ES[employer] DEVELOPER Ot 786.52 PAINFUL RESPIRATION 01/17/2016 MARTINE HUMPHRIESFRANCIS Ot V22.1 SUPERVIS OTH NORMAL PREG 01/17/2016 MARTINE HUMPHRIES FRANCIS Duong Ot V28.3 ENCOUNTER ROUTINE SCREEN FOR MALFORMATIO 01/17/2016 MARTINE HUMPHRIES FRANCIS Duong Ot O34.21 MATERNAL CARE FOR SCAR FROM PREVIOUS ANGELICA 01/17/2016 MARTINE HUMPHRIES FRANCIS Duong Ot Z01.818 ENCOUNTER FOR OTHER PREPROCEDURAL EXAMIN 01/17/2016 MARTINE HUMPHRIESFRANCIS Ot Z11.2 ENCOUNTER FOR SCREENING FOR OTHER BACTER 01/17/2016 MARTINE HUMPHRIES FRANCIS C Ot Z3A.00 WEEKS OF GESTATION OF NOT [...] MUSCLE, FASCIA AND TENDON OF L 09/02/2016 ADAM PA, SOCORRO L Ot X50.0XXA OVEREXERTION FROM STRENUOUS MOVEMENT OR 09/02/2016 SOCORRO JACKMAN Ot Y92.[address] IN [facility] NON-[facility] (PRIVATE 09/02/2016 SOCORRO JACKMAN Ot Y99.8 OTHER EXTERNAL CAUSE STATUS 09/02/2016 FARLEY DO FRANCIS C Ot 654.23 PREV DELIVERY, ANTEPARTUM COND 09/02/2016 FARLEY DO FRANCIS C Ot V72.63 PRE-PROCEDURAL LABORATORY EXAMINATION 09/02/2016 FARLEY DO FRANCIS C Ot V74.8 SCREEN-BACTERIAL DIS NEC 09/02/2016 FARLEY DO, FRANCIS C Ot V22.1 SUPERVIS OTH NORMAL PREG 09/02/2016 FARLEY DO, FRANCIS C Ot V28.3 ENCOUNTER ROUTINE SCREEN FOR MALFORMATIO 09/02/2016 FARLEY DO FRANCIS C Ot O24.410 GESTATIONAL [...] MOVEMENT OR 09/08/2016 SOCORRO JACKMAN Ot Y92.009 [facility] PL[facility] IN [facility] NON-[facility] (PRIVATE 09/08/2016 SOCORRO JACKMAN Ot [...] V28.3 ENCOUNTER ROUTINE SCREEN FOR MALFORMATIO 02/11/2017 FARLEY DO FRANCIS C Ot O24.410 GESTATIONAL DIABETES MELLITUS IN PREGNAN 02/11/2017 MARTINE HUMPHRIES FRANCIS C Ot O34.21 MATERNAL CARE FOR SCAR FROM PREVIOUS ANGELICA 02/11/2017 MARTINE HUMPHRIES FRANCIS C Ot Z3A.37 37 [...] ABSENCE OF OTHER PARTS OF URINA 02/11/2017 MARTINE HUMPHRIES FRANCIS C Ot 654.23 PREV DELIVERY, ANTEPARTUM COND 02/11/2017 FRANCIS FARLEY DO C Ot V72.63 PRE-PROCEDURAL LABORATORY EXAMINATION 02/11/2017 HAI FARLEY DOA C Ot V74.8 SCREEN-BACTERIAL DIS NEC 02/11/2017 FRANCIS FARLEY DO C Ot V22.1 SUPERVIS OTH NORMAL PREG 02/11/2017 FRANCIS FARLEY DO C Ot V28.3 ENCOUNTER ROUTINE SCREEN FOR MALFORMATIO 02/11/2017 FRANCIS FARLEY DO C Ot O24.410 GESTATIONAL DIABETES MELLITUS IN [...] ABSENCE OF OTHER PARTS OF URINA 02/20/2017 FARLEY DO, FRANCIS C Ot 654.23 PREV [...] Ot 654.23 PREV DELIVERY, ANTEPARTUM COND 03/07/2017 FARLEYTiara HUMPHRIES FRANCIS C Ot V72.63 PRE-PROCEDURAL LABORATORY EXAMINATION 03/07/2017 HAI FARLEY DOA C Ot V74.8 SCREEN-BACTERIAL DIS NEC 03/07/2017 MARTINE HUMPHRIES FRANCIS C Ot V22.1 SUPERVIS OTH NORMAL PREG 03/07/2017 MARTINE HUMPHRIES FRANCIS C Ot V28.3 ENCOUNTER ROUTINE SCREEN FOR MALFORMATIO 03/07/2017 FARLEY FRANCIS C Ot O24.410 GESTATIONAL DIABETES MELLITUS IN PREGNAN 03/07/2017 FARLEY FRANCIS C Ot O34.21 MATERNAL CARE FOR SCAR FROM PREVIOUS ANGELICA 03/07/2017 MARTINE HUMPHRIES FRANCIS C Ot Z3A.37 37 WEEKS GESTATION OF 03/07/2017 MOE IRBY SALESFOR[employer] DEVELOPER Ot J45.909 UNSPECIFIED ASTHMA, UNCOMPLICATED 03/07/2017 MOE IRBY SALESFORCE DEVELOPER Ot R05 COUGH 03/07/2017 MOE IRBY SAL[employer]FOR[employer] DEVELOPER Ot Z87.59 PERSONAL HISTORY OF COMP OF PREG, CHLDBR 03/07/2017 MOE IRBY SALESFORCE DEVELOPER Ot Z87.891 PERSONAL HISTORY OF NICOTINE DEPENDENCE 03/07/2017 MARTINE HUMPHRIES FRANCIS C Ot 654.23 PREV DELIVERY, ANTEPARTUM COND 03/07/2017 MARTINE HUMPHRIES FRANCIS C Ot V72.63 PRE-PROCEDURAL LABORATORY EXAMINATION 03/07/2017 FARLEY FRANCIS C Ot V74.8 SCREEN-BACTERIAL DIS NEC 03/07/2017 MARTINE HUMPHRIES FRANCIS Rhoda Ot V22.1 SUPERVIS OTH NORMAL PREG 03/07/2017 FARLEY FRANCIS C Ot V28.3 ENCOUNTER ROUTINE SCREEN FOR MALFORMATIO 03/07/2017 FARLEY FRANCIS C Ot O24.410 GESTATIONAL DIABETES MELLITUS IN PREGNAN 03/07/2017 FARLEY FRANCIS C Ot O34.21 MATERNAL CARE FOR SCAR FROM PREVIOUS ANGELICA 03/07/2017 FARLEY DO FRANCIS C Ot Z3A.37 37 WEEKS GESTATION OF 03/21/2017 FARLEY FRANCIS C Ot 654.23 PREV DELIVERY, ANTEPARTUM COND 03/21/2017 FARLEY FRANCIS C Ot V72.63 PRE-PROCEDURAL LABORATORY EXAMINATION 03/21/2017 FARLEY FRANCIS C Ot V74.8 SCREEN-BACTERIAL DIS NEC 03/21/2017 FARLEY DOFRANCIS Ot V22.1 SUPERVIS OTH NORMAL PREG 03/21/2017 MARTINE HUMPHRIES FRANCIS Rhoda Ot V28.3 ENCOUNTER ROUTINE SCREEN FOR MALFORMATIO 03/21/2017 MARTINE HUMPHRIESFRANCIS Ot O24.410 GESTATIONAL DIABETES MELLITUS IN PREGNAN 03/21/2017 MARTINE HUMPHRIES FRANCIS C Ot O34.21 MATERNAL CARE FOR SCAR FROM PREVIOUS ANGELICA 03/21/2017 MARTINE HUMPHRIESFRANCIS Ot Z3A.37 37 WEEKS GESTATION OF 03/24/2017 CAROL ISIDRO, KENRICK Salcedo Ot J45.909 UNSPECIFIED ASTHMA, UNCOMPLICATED 03/24/2017 CAROL ISIDRO, KENRICK Salcedo Ot M54.5 LOW BACK PAIN 03/24/2017 CAROL ISIDRO, KENRICK Salcedo Ot Z87.59 PERSONAL HISTORY OF COMP OF PREG, CHLDBR 03/24/2017 CAROL ISIDRO, KENRICK Salcedo Ot Z90.6 ACQUIRED ABSENCE OF OTHER PARTS OF URINA 03/28/2017 STACY BANKS MD Ot E07.9 DISORDER OF THYROID, UNSPECIFIED 03/28/2017 STACY BANKS MD Ot F17.200 NICOTINE DEPENDENCE, UNSPECIFIED, UNCOMP 03/28/2017 STACY BANKS MD Ot J10.1 FLU DUE TO OTH IDENT INFLUENZA VIRUS W O 03/28/2017 STACY BANKS MD Ot J45.909 UNSPECIFIED ASTHMA, UNCOMPLICATED 03/28/2017 STACY BANKS MD Ot R05 COUGH 03/28/2017 STACY BANKS MD Ot Z98.890 OTHER SPECIFIED POSTPROCEDURAL STATES 04/01/2017 STACY BANKS MD Ot E07.9 DISORDER OF THYROID, UNSPECIFIED 04/01/2017 STACY BANKS MD Ot F17.200 NICOTINE DEPENDENCE, UNSPECIFIED, UNCOMP 04/01/2017 STACY BANKS MD Ot J10.1 FLU DUE TO OTH IDENT INFLUENZA VIRUS W O 04/01/2017 STACY BANKS MD Ot J45.909 UNSPECIFIED ASTHMA, UNCOMPLICATED 04/01/2017 STACY BANKS MD Ot R05 COUGH 04/01/2017 STACY BANKS MD Ot Z98.890 OTHER SPECIFIED POSTPROCEDURAL STATES Procedures Code Description [place] [address] URINE TEST (IN- HOUSE) 03/17/2012 74.1 LOW CERVICAL 10/16/2012 [id number] EXTRACTION OF POC, LOW CERVICAL, OPEN AP [...] blood basophil count (count/volume) 0.0 10*3/uL 0.0-0.1 Influenza virus A and B antigen detection - 03/28/17 10:12 CALL POSITIVES (F1 HELP) CALLED TO Lyn ACOSTA AT [address] [facility] FLU RESULT POSITIVE FOR INFLUENZA A ANTIGEN, NEG FOR B ANTIGEN, BY [facility] Complete blood count (CBC) with automated white blood cell (WBC) differential - 03/28/17 10:17 Blood leukocytes automated count (number/volume) 7.7 10*3/uL 4.3-11.0 Blood erythrocytes automated count (number/volume) 4.36 10*6/uL 4.35-5.85 Venous blood hemoglobin measurement (mass/volume) 13.3 g/dL 11.5-16.0 Blood hematocrit (volume fraction) 39 % 35-52 Automated erythrocyte mean corpuscular volume 90 [foz_us] 80-99 Automated erythrocyte mean corpuscular hemoglobin (mass per erythrocyte) 31 pg 25-34 Automated erythrocyte mean corpuscular hemoglobin concentration measurement ( mass/volume) 34 g/dL 32-36 Automated erythrocyte distribution width ratio 12.9 % 10.0-14.5 Automated blood platelet count (count/volume) 198 10*3/uL 130-400 Automated blood platelet mean volume measurement 10.1 [foz_us] 7.4-10.4 Automated blood neutrophils/100 leukocytes 86 % 42-75 Automated blood lymphocytes/100 leukocytes 5 % 12-44 Blood monocytes/100 leukocytes 7 % 0-12 Automated blood eosinophils/100 leukocytes 2 % 0-10 Automated blood basophils/100 leukocytes 0 % 0-10 Blood neutrophils automated count (number/volume) 6.6 10*3 1.8-7.8 Blood lymphocytes automated count (number/volume) 0.4 10*3 1.0-4.0 Blood monocytes automated count (number/volume) 0.5 10*3 0.0-1.0 Automated eosinophil count 0.2 10*3/uL 0.0-0.3 Automated blood basophil count (count/volume) 0.0 10*3/uL 0.0-0.1 Blood manual differential performed detection - 03/28/17 10:17 Blood monocytes/100 leukocytes 3 % NRG Manual blood segmented neutrophils/100 leukocytes 90 % NRG Manual blood lymphocytes/100 leukocytes 5 % NRG Manual eosinophils/100 leukocytes in nose 2 % NRG Blood erythrocyte morphology finding identification NORMAL NRG Encounters ACCT No. Visit Date/Time Discharge Status Pt. Type Provider Facility Loc./Unit Complaint [id number] 02/25/2018 10:39:18 02/25/2018 23:59:59 CLS Outpatient MAURISIO DÍAZ [id number] 07/13/2014 11:04:51 07/13/2014 23:59:59 CLS Outpatient Gulshan Sigala [id number] 03/29/2013 16:58:19 03/29/2013 23:59:59 CLS Outpatient MAURISIO DÍAZ [id number] 07/14/2013 14:40:30 Document Registration [id number] 03/17/2012 12:00:00 03/17/2012 23:59:59 CLS Outpatient BLANCA EAGLE APRN [id number] 08/18/2012 10:37:00 Document Registration [id number] 02/23/2018 13:25:00 02/23/2018 23:59:59 CLS Outpatient BEATRICE HERNANDEZ [facility]AC [facility] [id number] 02/28/2018 21:10:00 02/28/2018 22:42:00 DIS Emergency MOE IRBY APRN [facility] ER CONGESTION,COUGH,SOA [id number] 03/28/2017 08:47:00 03/28/2017 11:26:00 DIS Emergency STACY BANKS MD [facility] ER COUGH [id number] 03/21/2017 17:00:00 03/21/2017 17:49:00 DIS Outpatient CAROL MD, KENRICK S [facility] ER BACK PAIN [id number] 03/07/2017 20:35:00 03/07/2017 21:36:00 DIS Emergency MOE IRBY SALESFORCE DEVELOPER [facility] ER BRONCHITIS [id number] 02/20/2017 16:54:00 02/20/2017 17:34:00 DIS Emergency MOE IRBY SALESFORCE DEVELOPER [facility] ER BRONCHITIS [id number] 02/11/2017 19:04:00 02/11/2017 19:53:00 DIS Emergency BONNIE ISIDRO, AGUSTIN Perez [facility] ER COUGH,RUNNY NOSE [id number] 09/02/2016 11:51:00 09/02/2016 15:03:00 DIS Emergency SOCORRO JACKMAN [facility] ER L LOWER BACK PAIN [id number] 01/17/2016 18:45:00 01/17/2016 19:39:00 DIS Emergency BONNIE ISIDRO, AGUSTIN Perez [facility] ER BACK PAIN [id number] 02/28/2015 06:01:00 03/02/2015 11:15:00 DIS Inpatient FRANCIS FARLEY DO [facility] LDRP PREVIOUS SECTION [id number] 02/21/2015 14:16:00 02/21/2015 23:59:59 CLS Outpatient FRANCIS FARLEY DO [facility] PREOP [id number] 02/16/2015 13:38:00 02/16/2015 23:59:59 CLS Outpatient FRANCIS FARLEY DO [facility] RAD GESTATIONAL DIABETES [id number] 12/14/2014 13:22:00 12/14/2014 23:59:59 CLS Outpatient FRANCSI FARLEY DO [facility] RAD FOLLOW UP SURVEY [id number] 11/14/2014 14:52:00 11/14/2014 23:59:59 CLS Outpatient FRANCIS FARLEY DO [facility] RAD SURVEY [id number] 08/30/2014 19:33:00 08/30/2014 20:09:00 DIS Emergency LINN GUO DO [facility] ER RASH [id number] 12/23/2013 01:27:00 12/23/2013 02:13:00 DIS Emergency CHRISTINA ALONZO MD [facility] ER RASH,COUGH [id number] 04/20/2013 21:15:00 04/20/2013 23:20:00 DIS Emergency MOE IRBY APRN [facility] ER L SIDE PAIN; NO INJ [id number] 10/16/2012 06:15:00 10/18/2012 15:55:00 DIS Inpatient FRANCIS FARLEY DO [facility] WS PREVIOUS SECTION [id number] 10/12/2012 08:00:00 10/12/2012 23:59:59 CLS Outpatient FRANCIS FARLEY DO [facility] PREOP PREVIOUS SECTION [id number] 06/27/2012 11:26:00 Document Registration [id number] 01/07/2012 21:08:00 Document Registration [id number] 12/28/2011 13:17:00 Document Registration
[2018-03-12 22:40] LABS: BILIRUBIN,URINE NEGATIVE (NEGATIVE); CLARITY,URINE SLIGHTLY CLOUDY; COLOR,URINE YELLOW; GLUCOSE, URINE (UA) NEGATIVE (NEGATIVE); KETONES,URINE NEGATIVE (NEGATIVE); LEUKOCYTE ESTERASE ,URINE NEGATIVE (NEGATIVE); NITRITE,URINE NEGATIVE (NEGATIVE); PH,URINE 6.5 (5-9); PROTEIN,URINE 1+ (NEGATIVE); UROBILINOGEN,URINE NORMAL (NORMAL)
[2018-03-12] MEDS ORDERED: NS IV 1000 ML 1,000 ML IV SCH (22:46)
[2018-03-12 22:47] LABS: BACTERIA,URINE NEGATIVE /HPF; WBC,URINE RARE /HPF
[2018-03-12 23:16] LABS: BASOPHILS % (AUTO) 0 % (0-10); EOSINOPHILS # (AUTO) 0.2 10^3/uL (0.0-0.3); EOSINOPHILS % (AUTO) 1 % (0-10); HEMATOCRIT 42 % (35-52); HEMOGLOBIN 14.1 G/DL (11.5-16.0); LYMPHOCYTES # (AUTO) 3.3 X 10^3 (1.0-4.0); LYMPHOCYTES % (AUTO) 19 % (12-44); MEAN CORPUSCULAR HEMOGLOBIN 31 PG (25-34); MEAN CORPUSCULAR HGB CONC 34 G/DL (32-36); MEAN CORPUSCULAR VOLUME 92 FL (80-99); MEAN PLATELET VOLUME 9.8 FL (7.4-10.4); MONOCYTES # (AUTO) 1.3 X 10^3 (0.0-1.0); MONOCYTES % (AUTO) 7 % (0-12); NEUTROPHILS # (AUTO) 12.8 X 10^3 (1.8-7.8); NEUTROPHILS % (AUTO) 73 % (42-75); PLATELET COUNT 265 10^3/uL (130-400); RED BLOOD COUNT 4.56 10^6/uL (4.35-5.85); RED CELL DISTRIBUTION WIDTH 13.7 % (10.0-14.5); WHITE BLOOD COUNT 17.6 10^3/uL (4.3-11.0)
[2018-03-12 23:30] LABS: BAND NEUTROPHILS 1 %; BASOPHILS % (MANUAL) 0 %; EOSINOPHILS % (MANUAL) 0 %; LYMPHOCYTES % (MANUAL) 23 %; MONOCYTES % (MANUAL) 6 %; NEUTROPHILS % (MANUAL) 70 %; RBC MORPH NORMAL
--- NOTE | 2018-03-12 23:38 | ED General ---
General Chief Complaint: Abdominal/GI Problems Stated Complaint: LEFT SIDE PAIN Source of Information: Patient Exam Limitations: No Limitations History of Present Illness Date Seen by Provider: Mar 12, 2018 Time Seen by Provider: 22:25 Initial Comments Here with left sided abdominal pain or low chest pain. This has been going on for a few days and much worse today. She is currently undergoing therapy for bronchitis and is on doxycycline. She reportedly completed a steroid taper a few days ago. Denies nausea or vomiting. Does have mild fever here. She is also tachycardic. Pain is an ache and worse with deep breathing. Timing/Duration: 2-3 Days, Getting Worse Severity: Moderate Associated Systoms: Chest Pain, Cough, Fever/Chills; No Loss of Appetite, No Nausea/Vomiting, No Shortness of Air, No Weakness Allergies and Home Medications Allergies Coded Allergies: No Known Drug Allergies (Unverified , 04/20/13) Home Medications Albuterol Sulfate 1 Puff Puff, 1-4 PUFF IH Q4H PRN for SHORTNESS OF BREATH 1 PUFF = 90 MCG Prescribed by: AGUSTIN JANSEN on 02/11/17 1950 Azithromycin 250 Mg Tablet, 250 MG PO UD TAKE 2 TABLETS ON DAY ONE THEN TAKE 1 TABLET DAILY FOR FOUR MORE DAYS Prescribed by: MOE IRBY on 02/28/182223 Methylprednisolone 4 Mg Tab.ds.pk, 4 MG PO UD Prescribed by: MOE IRBY on 03/07/172053 Patient Home Medication List Home Medication List Reviewed: Yes Review of Systems Review of Systems Constitutional: see HPI; No chills; fever EENTM: no symptoms reported Respiratory: see HPI, cough; No short of breath, No wheezing Cardiovascular: no symptoms reported Gastrointestinal: see HPI, abdominal pain (LUQ); No nausea, No vomiting Genitourinary: no symptoms reported : No Musculoskeletal: no symptoms reported Skin: no symptoms reported All Other Systems Reviewed Negative Unless Noted: Yes Past Noszfda-Lropvy-Cgohlr Hx Past Med/Social Hx: Reviewed Nursing Past Med/Soc Hx Patient Social History Alcohol Use: Denies Use Recreational Drug Use: No Smoking Status: Current Everyday Smoker 2nd Hand Smoke Exposure: No Recent Foreign Travel: No Contact w/Someone Who Travel: No Recent Hopitalizations: No Immunizations Up To Date Tetanus Booster (TDap): Less than 5yrs Date of Influenza Vaccine: Jan 05, 2013 Seasonal Allergies Seasonal Allergies: No Past Medical History Surgeries: Yes (OVARIAN CYST) Section Respiratory: Yes Asthma Cardiac: No Neurological: No Reproductive Disorders: No Female Reproductive Disorders: Denies Sexually Transmitted Disease: No HIV/AIDS: No Genitourinary: No Gastrointestinal: No Musculoskeletal: No Endocrine: No HEENT: No Cancer: No Psychosocial: No Integumentary: No Blood Disorders: No Adverse Reaction/Blood Tranf: No Family Medical History Reviewed Nursing Family Hx Patient reports no known family medical history. No Pertinent Family Hx Physical Exam Vital Signs Vital Signs - First Documented 03/12/18 22:25 Temp 99.8 Pulse 114 Resp 19 B/P (MAP) 153/78 (103) Capillary Refill : Height, Weight, BMI Height: 5'3.00" Weight: 275lbs. 0oz. 124.102488kp; 46.00 BMI Method:Stated General Appearance: No Apparent Distress, WD/WN HEENT: PERRL/EOMI, Pharynx Normal Neck: Non Tender, Supple Respiratory: Lungs Clear, Normal Breath Sounds Cardiovascular: No Murmur, Tachycardia Gastrointestinal: Non Tender, Soft Back: Normal Inspection, No CVA Tenderness, No Vertebral Tenderness Extremity: Normal Range of Motion, Non Tender Neurologic/Psychiatric: Alert, Oriented x3 Skin: Normal Color, Warm/Dry Focused Exam Lactate Level 03/12/18 23:02: Lactic Acid Level 0.92 Lactic Acid Level Laboratory Tests Test 03/12/18 23:02 Lactic Acid Level 0.92 MMOL/L (0.50-2.00) Progress/Results/Core Measures Suspected Sepsis SIRS Temperature: Pulse: Respiratory Rate: Laboratory Tests 03/12/18 23:02: White Blood Count 17.6H Blood Pressure / Mean: 03/12/18 23:02: Lactic Acid Level 0.92 Laboratory Tests 03/12/18 23:02: Creatinine 0.80, Platelet Count 265, Total Bilirubin 0.4 Results/Orders Lab Results Laboratory Tests Test 03/12/18 22:36 03/12/18 23:02 Range/Units Urine Color YELLOW Urine Clarity SLIGHTLY CLOUDY Urine pH 6.5 5-9 Urine Specific [place] 1.020 1.016-1.022 Urine Protein 1+ H NEGATIVE Urine Glucose (UA) NEGATIVE NEGATIVE Urine Ketones NEGATIVE NEGATIVE Urine Nitrite NEGATIVE NEGATIVE Urine Bilirubin NEGATIVE NEGATIVE Urine Urobilinogen NORMAL NORMAL MG/DL Urine Leukocyte Esterase NEGATIVE NEGATIVE Urine RBC (Auto) NEGATIVE NEGATIVE Urine RBC NONE /HPF Urine WBC RARE /HPF Urine Squamous Epithelial Cells 5-10 /HPF Urine Crystals NONE /LPF Urine Bacteria NEGATIVE /HPF Urine Casts NONE /LPF Urine Mucus NEGATIVE /LPF Urine Culture Indicated NO White Blood Count 17.6 H 4.3-11.0 10^3/uL Red Blood Count 4.56 4.35-5.85 10^6/uL Hemoglobin 14.1 11.5-16.0 G/DL Hematocrit 42 35-52 % Mean Corpuscular Volume 92 80-99 FL Mean Corpuscular Hemoglobin 31 25-34 PG Mean Corpuscular Hemoglobin Concent 34 32-36 G/DL Red Cell Distribution Width 13.7 10.0-14.5 % Platelet Count 265 130-400 10^3/uL Mean Platelet Volume 9.8 7.4-10.4 FL Neutrophils (%) (Auto) 73 42-75 % Lymphocytes (%) (Auto) 19 12-44 % Monocytes (%) (Auto) 7 0-12 % Eosinophils (%) (Auto) 1 0-10 % Basophils (%) (Auto) 0 0-10 % Neutrophils # (Auto) 12.8 H 1.8-7.8 X 10^3 Lymphocytes # (Auto) 3.3 1.0-4.0 X 10^3 Monocytes # (Auto) 1.3 H 0.0-1.0 X 10^3 Eosinophils # (Auto) 0.2 0.0-0.3 10^3/uL Basophils # (Auto) 0.0 0.0-0.1 10^3/uL Neutrophils % (Manual) 70 % Lymphocytes % (Manual) 23 % Monocytes % (Manual) 6 % Eosinophils % (Manual) 0 % Basophils % (Manual) 0 % Band Neutrophils 1 % Blood Morphology Comment NORMAL Sodium Level 135 135-145 MMOL/L Potassium Level 4.1 3.6-5.0 MMOL/L Chloride Level 103 98-107 MMOL/L Carbon Dioxide Level 21 21-32 MMOL/L Anion Gap 11 5-14 MMOL/L Blood Urea Nitrogen 13 7-18 MG/DL Creatinine 0.80 0.60-1.30 MG/DL Estimat Glomerular Filtration Rate > 60 BUN/Creatinine Ratio 16 Glucose Level 133 H 70-105 MG/DL Lactic Acid Level 0.92 0.50-2.00 MMOL/L Calcium Level 9.5 8.5-10.1 MG/DL Corrected Calcium 9.5 8.5-10.1 MG/DL Total Bilirubin 0.4 0.1-1.0 MG/DL Aspartate Amino Transf (AST/SGOT) 26 5-34 U/L Alanine Aminotransferase (ALT/SGPT) 42 0-55 U/L Alkaline Phosphatase 97 40-136 U/L Total Protein 7.5 6.4-8.2 GM/DL Albumin 4.0 3.2-4.5 GM/DL Amylase Level 35 25-125 U/L Lipase 15 8-78 U/L My Orders Orders - JAMES GODINEZ MD Ua Culture If Indicated (03/12/18 22:31) Urine Bedside (03/12/18 22:31) Amylase (03/12/18 22:32) Cbc With Automated Diff (03/12/18 22:32) Comprehensive Metabolic Panel (03/12/18 22:32) Lipase (03/12/18 22:32) Saline Lock/Iv-Start (03/12/18 22:32) Chest Pa/Lat (2 View) (03/12/18 22:46) Lactic Acid Analyzer (03/12/18 22:46) Blood Culture (03/12/18 22:46) Saline Lock/Iv-Start (03/12/18 22:46) Ns Iv 1000 Ml (Sodium Chloride 0.9%) (03/12/18 22:46) Manual Differential (03/12/18 23:02) Ct Chest/Abdomen W (03/13/18 00:01) Iohexol Injection (Omnipaque 350 Mg/Ml 1 (03/13/18 00:30) Contrast Received (Contrast Received) (03/13/18 00:30) Ns (Ivpb) (Sodium Chloride 0.9%) (03/13/18 00:30) Ketorolac Injection (Toradol Injection) (03/13/18 00:52) Medications Given in ED Current Medications Medications Dose Ordered Sig/Venkatesh Route Start Time Stop Time Status Last Admin Dose Admin Iohexol 100 ml ONCE ONCE IV 03/13/18 00:30 03/13/18 00:31 DC 03/13/18 00:23 100 ML Sodium Chloride 250 ml ONCE ONCE IV 03/13/18 00:30 12/7/18 00:31 DC 03/13/18 00:23 80 ML Vital Signs/I&O 03/12/18 03/12/18 22:25 23:30 Temp 99.8 99.8 Pulse 114 114 Resp 19 19 B/P (MAP) 153/78 (103) 153/78 Capillary Refill : Point of Care Testing Urine -Bedside: Negative Progress Note : Progress Note Seen and evaluated. IV, labs, normal saline 1 L bolus, blood cultures and lactic acid ordered. Two-view chest x-ray ordered. Monitor patient. White count is elevated. We will get CT chest and abdomen due to persistence of pain. There is questionable thickening of the left face. She is on doxycycline. Monitor patient. 0100: Toradol [address] shows left 10th rib fracture is nondisplaced but otherwise no pneumonia. Appears to be mostly related to bronchitis and coughing and musculoskeletal pain otherwise. Patient will be sent home with a go pack of hydrocodone. Discharged home with return precautions. Patient verbalize understanding instructions and agreement with plan. Diagnostic Imaging Diagonstic Imaging: Xray Plain Films/CT/US/NM/MRI: chest Comments Questionable increased thickening in the left base but no obvious significant infiltrate otherwise. Diagonstic Imaging: CT Plain Films/CT/US/NM/MRI: chest, abdomen Comments CT chest shows nondisplaced fracture of the posterior lateral left 10th rib but otherwise unremarkable CT chest. CT abdomen does not show any acute findings. Reviewed: Reviewed by Me Departure Impression Primary Impression: Rib fracture Qualified Codes: S22.32XA - Fracture of one rib, left side, initial encounter for closed fracture Additional Impression: Bronchitis Disposition: 01 HOME, SELF-CARE Condition: Improved Departure-Patient Inst. Decision time for Depature: 01:06 Referrals: [facility] (PCP/Family) Primary Care Physician Patient Instructions: Acute Bronchitis, Adult (DC), Rib Fracture (DC) Add. Discharge Instructions: All discharge instructions reviewed with patient and/or family. Voiced understanding. Take medications as directed. You may take ibuprofen 800 mg every 8 hours as needed for pain. You may take Tylenol/acetaminophen 1000 mg every 8 hours as needed for pain if you're not taking the prescribed pain medicine. Do not take both at the same time as they both have acetaminophen in them. Follow-up with your in a few days for recheck. Use incentive spirometer several times per hour while awake to decrease chance for pneumonia. Return for worse pain, fever , vomiting, weakness, breathing problems or other concerns as needed. Scripts Hydrocodone Bit/Acetaminophen (Hydrocodone/Acetaminophen 5/325mg Tablet) 1 Tab Tab 1 EACH PO Q4-6HR PRN for PAIN-MODERATE MDD 10, #12 TAB 0 Refills Prov: JAMES GODINEZ MD 03/13/18 JAMES GODINEZ MD Mar 12, 2018 23:38
[2018-03-12 23:42] LABS: ALANINE AMINOTRANSFERASE 42 U/L (0-55); ALKALINE PHOSPHATASE 97 U/L (40-136); AMYLASE 35 U/L (25-125); BILIRUBIN,TOTAL 0.4 MG/DL (0.1-1.0); BUN/CREATININE RATIO 16; CALCIUM 9.5 MG/DL (8.5-10.1); CARBON DIOXIDE 21 MMOL/L (21-32); CHLORIDE 103 MMOL/L (98-107); GFR ESTIMATED > 60; GLUCOSE 133 MG/DL (70-105); LIPASE 15 U/L (8-78); POTASSIUM 4.1 MMOL/L (3.6-5.0); SODIUM 135 MMOL/L (135-145); TOTAL PROTEIN 7.5 GM/DL (6.4-8.2)
[2018-03-13] MEDS ORDERED: RECEIVED CONTRAST (Hold Metformin) IV SCH (00:30)
[2018-03-13] MEDS ORDERED: IOHEXOL 350 MG/ML 100 ML (OMNIPAQUE 350) VIAL IV ONE (00:30)
[2018-03-13] MEDS ORDERED: NS 250 ML (IVPB) BAG IV ONE (00:30)
[2018-03-13] MEDS ORDERED: KETOROLAC 30 MG/ML VIAL IVP STA (00:52)
[2018-03-13] MEDS ORDERED: ACHD5005 PO (01:09)
[2018-03-13 01:15] VITALS: BP 153/78
[2018-03-13] MEDS ORDERED: RX-HYDROCODONE/APAP 5/325 MG #4 TAB PK PO PRN (01:15)
--- NOTE | 2018-03-13 06:51 | Diagnostic Imaging Report ---
INDICATION: Cough and congestion COMPARISON: 02/28/2018 FINDINGS: Frontal and lateral views of the chest demonstrate clear lungs bilaterally. The heart is normal. There is no pneumothorax. The osseous structures normal. IMPRESSION: Negative chest Dictated by: Dictated on workstation # [id number]
--- NOTE | 2018-03-13 08:17 | Diagnostic Imaging Report ---
PROCEDURE: CT chest and abdomen with contrast. TECHNIQUE: Multiple contiguous axial images were obtained through the chest and abdomen after the administration of intravenous contrast. Date: March 13, 2018. Indication: 28-year-old female, left upper quadrant pain and cough. Comparison: Chest radiographs March 12, 2018. CT abdomen and pelvis February 17, 2009. Findings: There is a 3 mm noncalcified right lower lobe pulmonary nodule on axial image 35. This is unchanged since February 17, 2009 compatible with benign etiology. There is no otherwise identified pulmonary nodule. There is no lung mass. There is no focal airspace consolidation. There is no pneumothorax. There is no pleural effusion. The central airways are patent. There is nondiagnostic assessment for pulmonary embolus given the timing of the contrast bolus. The heart is not enlarged. There is no pericardial effusion. There is no identified abnormally enlarged mediastinal, hilar, or axillary lymph node which meets CT size criteria for adenopathy. The liver is normal in size and contour. There is no identified liver lesion. The main portal vein is grossly patent. The gallbladder is unremarkable. There is no intrahepatic or extrahepatic bile duct dilation. The main pancreatic duct is not abnormally dilated. Unremarkable appearance of the pancreatic parenchyma. The spleen is normal in size. The adrenal glands are unremarkable. Unremarkable appearance of the renal parenchyma. The urinary collecting systems are not distended in their visualized portions. Visualized portions of the intestinal tract are not distended. There is no identified free intraperitoneal air or drainable fluid collection. There is no free fluid within the abdomen. There is no identified abnormally enlarged lymph node in the abdomen which meets CT size criteria for adenopathy. There is a nondisplaced left 10th rib fracture best seen on axial image 59 and sagittal image 13. There is no identified periosteal reaction or bony callus bridging. This may be acute in age. Recommend correlation with history and for focal pain at this exact site. There is no otherwise identified acute bony abnormality. There are degenerative changes of the lumbar spine. Impression: 1. Acute appearing nondisplaced fracture of the left 10th rib. 2. No identified acute cardiopulmonary abnormality or acute abnormality within the abdomen. Dictated by: Dictated on workstation # [id number]
== END 2018-03-13 01:16 | disposition home or self-care (01) ==
LOC: EDUNIT# 22:16 → ER 22:18
DX: S22.32XA Fracture of one rib, left side, initial encounter for closed fracture (principal); J45.909 Unspecified asthma, uncomplicated; F17.200 Nicotine dependence, unspecified, uncomplicated; Z79.51 Long term (current) use of inhaled steroids; Z87.448 Personal history of other diseases of urinary system; Z79.52 Long term (current) use of systemic steroids; Z98.890 Other specified postprocedural states; X58.XXXA Exposure to other specified factors, initial encounter
CPT/HCPCS: 36415; 71046; 71260; 74160; 80053; 81000; 82150; 83605; 83690; 84703; 85007; 85027; 87040; 94664

== ENCOUNTER → 2021-08-20 | Outpatient (CLI) | payer OTHER ==
[~2021-08-20] MED LIST changes: +CYCL10TA25 PO; -CYCL10TA9 PO; +GLBR2.5T PO; -GLYB2.5T4 PO; -TRAM50TA2 PO
--- NOTE | 2021-08-20 09:49 | Diagnostic Imaging Report ---
EXAMINATION: US Abdomen limited. TECHNIQUE: Multiple real-time grayscale images were obtained over the right upper quadrant in various projections. HISTORY: EPIGASTRIC PAIN COMPARISON: None available. FINDINGS: Pancreas: The visualized portions of the pancreas are normal. Liver: Increased echogenicity of the liver and normal contour which can be seen with hepatic steatosis. No focal lesions are seen. The portal vein is patent with hepatopetal flow. Gallbladder and biliary tree: Gallbladder is normal without wall thickening, pericholecystic fluid, or sonographic Bethea sign. There is no biliary ductal dilation. The common duct measures 0.5 cm. Right kidney: The right kidney is normal without hydronephrosis. Aorta and IVC: The visualized aorta and inferior vena cava are normal. Fluid: No ascites is seen. IMPRESSION: 1. Hepatic steatosis. Otherwise unremarkable abdominal ultrasound. Dictated by: Dictated on workstation # [id number]
== END ==
LOC: RAD 09:00
PROVIDERS: ATTEND Surgery
DX: K76.0 Fatty (change of) liver, not elsewhere classified (principal)
CPT/HCPCS: 76705

== ENCOUNTER → 2021-08-24 | Outpatient (CLI) | payer OTHER ==
[~2021-08-24] MED LIST changes: +CATHETER FLUSH 10 ML SYR IVP PRN
--- NOTE | 2021-08-24 15:33 | Diagnostic Imaging Report ---
RADIOPHARMACEUTICAL: 4.88mCi Tc-99m Choletec IV INDICATION: Epigastric pain COMPARISON: 08/20/2021 TECHNIQUE: Anterior dynamic imaging for 1 hour. Additional imaging was performed at 75 minutes to better visualize the gallbladder. Additional 60 minutes of imaging was performed after the patient ingested an 8 ounce can of Ensure. FINDINGS: There is homogenous uptake throughout the liver. The gallbladder is visualized at 55minutes and small bowel at 15minutes. After CCK analog administration, there is normal contraction of the gallbladder with normal calculated GBEF at 40%. IMPRESSION: 1. Normal HIDA Scan without evidence of cystic or common duct obstruction. 2. Normal GBEF of 40%. Dictated by: Dictated on workstation # [id number]
== END ==
LOC: CARD 12:00
PROVIDERS: ATTEND Surgery
DX: R10.13 Epigastric pain (principal)
CPT/HCPCS: 78227; A9537

== ENCOUNTER 2021-09-20 05:34 | Outpatient (CLI) | payer SELFPAY ==
[~2021-09-20] VITALS: Ht 160 cm; Wt 127.0 kg
[~2021-09-20 05:34] MED LIST changes: -CATHETER FLUSH 10 ML SYR IVP PRN
== END 2021-09-24 14:52 | disposition home or self-care (01) ==
LOC: PREOP 05:34
PROVIDERS: ATTEND Surgery
DX: Z01.818 Encounter for other preprocedural examination (principal)

== ENCOUNTER 2021-09-27 10:30 | Day surgery (SDC) | payer OTHER ==
[2021-09-27] VITALS (12 sets, daily range): BP systolic 119–140; BP diastolic 67–89
[~2021-09-27] VITALS: Ht 160 cm; Wt 127.0 kg
[2021-09-27] MEDS ORDERED: SEVOFLURANE (ULTANE) 15 ML INHAL SOLN ONE ×2 (10:37→13:31)
[2021-09-27] MEDS ORDERED: LIDOCAINE PF 2% 5 ML (XYLOCAINE) VIAL ONE (10:37)
[2021-09-27] MEDS ORDERED: fentaNYL INJ 100 MCG/2 ML AMP ONE (10:37)
[2021-09-27] MEDS ORDERED: ONDANSETRON 4 MG/2 ML (SDV) Z0FRAN ONE (10:37)
[2021-09-27] MEDS ORDERED: MIDAZOLAM 2 MG/2 ML (VERSED) VIAL ONE (10:37)
[2021-09-27] MEDS ORDERED: proPOfol 200 MG/20 ML (DIPRIVAN) VIAL IV ONE (10:37)
[2021-09-27] MEDS ORDERED: ceFAZolin 2 GM IV Premixed 50 ML IV ONE (10:45)
[2021-09-27] MEDS ORDERED: LACTATED RINGERS 1,000 ML IV PRN (10:45)
[2021-09-27] MEDS ORDERED: LIDOCAINE/EPI 2% 1:200,00 (XYLOCAINE) 20 ML VIAL ONE (10:58)
--- NOTE | 2021-09-27 11:33 | Progress Note-Pre Operative ---
Pre-Operative Progress Note H&P Reviewed The H&P was reviewed, patient examined and no changes noted. Date Seen by Provider: Sep 27, 2021 Time Seen by Provider: 11:33 Date H&P Reviewed: Sep 27, 2021 Time H&P Reviewed: 11:33 Pre-Operative Diagnosis: biliary dyskinesia CHRIST LINDSAY DO Sep 27, 2021 11:33
[2021-09-27] MEDS ORDERED: ROCURONIUM 50 MG/5 ML (ZEMURON) VIAL IV ONE (13:20)
[2021-09-27] MEDS ORDERED: NEOSTIGMINE 3 MG/3 ML VIAL ONE (13:33)
[2021-09-27] MEDS ORDERED: GLYCOPYRROLATE 0.2 MG/ML (ROBINUL) 2 ML VIAL ONE (13:33)
--- NOTE | 2021-09-27 13:50 | Progress Note-Post Operative ---
Post-Operative Progess Note Surgeon (s)/Truck Shop Mechanic (s) Surgeon CHRIST LINDSAY DO Truck Shop Mechanic: Dr. Espinal Pre-Operative Diagnosis biliary dyskinesia Post-Operative Diagnosis biliary dyskinesia, incarcerated ventral hernia Procedure & Operative Findings Date of Procedure 09/27/21 Procedure Performed/Findings lap ирина c ioc, lap incarcerated ventral hernia repair. Anesthesia Type general Estimated Blood Loss Estimated blood loss (mL): minimal Specimens/Packing Specimens Removed gallbladder CHRIST LINDSAY DO Sep 27, 2021 13:50
[2021-09-27] MEDS ORDERED: ACHD5005 PO (13:53)
[2021-09-27] MEDS ORDERED: DOCU-143 PO (13:53)
--- NOTE | 2021-09-27 13:54 | Discharge Inst-Simple/Standard ---
Discharge Inst-Standard Discharge Medications New, Converted or Re-Newed RX: Transmitted to Pharmacy Patient Instructions/Follow Up Plan of Care/Instructions/FU: 2 weeks Tawana Activity as Tolerated: No Discharge Diet: Regular Diet Other Inst to Patient Follow up Appt: Make appointment for 2 weeks. Instructions: No lifting greater than 10 pounds. No strenuous activity. May shower in 24 hours, no tub bath or soaking. Use incentive spirometer at home as directed. No Smoking Skin/Wound Care: You have special glue over incision, it will fall off on it's own. Symptoms to Report: Appetite Changes, Extremity Discoloration, Numbness/Tingling, Swelling Increased, Bleeding Excessive, Eyesight Changes, Pain Increased, Urine Color Change, Constipation(Persistent), Fever over 101 degree F, Pain/Pressure in chest, Urinating Difficulty, Cough Up/Vomit Blood, Heart Beat Irreg/Pounding, Pain/Pressure in jaw, Vaginal Bleeding Increase, Cramps in feet or legs, Lightheadedness, Pain/Pressure in shoulder, Diarrhea(Persistent), Memory Changes Suddenly, Questions/Concerns, Weight gain consecutive days, Dizziness/Fainting, Nausea/Vomiting, Shortness of Breath, Weight gain over 2 pounds. If eyes or skin turn yellow notify physician. If questions or concerns contact your physician Or seek help at emergency department. CHRIST LINDSAY DO Sep 27, 2021 13:54
[2021-09-27] MEDS ORDERED: morphine INJ 10 MG/ML 1ML (SYR OR VIAL) IVP ONE (14:00)
[2021-09-27] MEDS ORDERED: MEPERIDINE (DEMEROL) INJ 50 MG/ML IVP ONE (14:00)
[2021-09-27] MEDS ORDERED: ONDANSETRON 4 MG/2 ML (SDV) Z0FRAN IVP PRN (14:00)
[2021-09-27] MEDS ORDERED: HYDROmorphone 2 MG/ML VIAL (DILAUDID) IV ONE (14:00)
[2021-09-27] MEDS ORDERED: HYDROmorphone 2 MG/ML VIAL (DILAUDID) ONE (14:05)
--- NOTE | 2021-09-27 14:16 | Diagnostic Imaging Report ---
Indication: Epigastric pain. COMPARISON: None Total fluoroscopy time: 8 seconds Total number fluoroscopic images saved: 43 FINDINGS: Multiple intraoperative image intensifier views of the right upper abdominal quadrant were obtained during intraoperative cholangiogram. Contrast is seen within the common bile and common hepatic ducts. No abnormal intraluminal filling defects are seen. Contrast empties into the small bowel, as expected. Please note, interpreting radiologist was not present during the procedure. IMPRESSION: 1. Fluoroscopic guidance provided during intraoperative cholangiogram. Dictated by: Dictated on workstation # [id number]
--- NOTE | 2021-09-27 14:38 | Anesthesia-General Post-Op ---
General Patient Condition Mental Status/LOC: Same as Preop Cardiovascular: Satisfactory Nausea/Vomiting: Absent Respiratory: Satisfactory Pain: Controlled Complications: Absent Post Op Complications Complications None Follow Up Care/Instructions Patient Instructions None needed. Anesthesia/Patient Condition Patient Condition Patient is doing well, no complaints, stable vital signs, no apparent adverse anesthesia problems. No complications reported per nursing. KOKO OLIVA CRNA Sep 27, 2021 14:37
[2021-09-27] MEDS ORDERED: HYDROcodone/APAP 5 MG/325 MG (LORTAB) TAB PO ONE (16:00)
[2021-09-27] MEDS ORDERED: HYDROcodone/APAP 5 MG/325 MG (LORTAB) TAB ONE (16:05)
--- NOTE | 2021-09-29 05:41 | OPERATIVE REPORT ---
DATE OF SERVICE: 09/27/2021 PREOPERATIVE DIAGNOSIS: Biliary dyskinesia. POSTOPERATIVE DIAGNOSIS: Biliary dyskinesia and incarcerated ventral hernia. PROCEDURE: 1. Laparoscopic cholecystectomy with intraoperative cholangiogram. 2. Laparoscopic incarcerated ventral hernia repair. SURGEON: Christ Gilliam DO. ANESTHESIA: General. HAND SEWER SHOES: Dr. Espinal, assisted in retraction, dissection and closure. ESTIMATED BLOOD LOSS: Minimal. COMPLICATIONS: None. SPECIMENS: Gallbladder. INDICATIONS: The patient is a 31-year-old female who has been having symptoms consistent with biliary dyskinesia. It is also possible that she might have had a ventral hernia. She understood risks and benefits of procedure and wishes to proceed. Consent was signed in the chart. DESCRIPTION OF PROCEDURE: The patient was taken to the operating suite. She was prepped and draped in sterile fashion. Timeout was performed. Local anesthetic was infiltrated just above the umbilicus, 11 blade scalpel was used to make a small skin incision. Cautery was used to dissect down through the subcutaneous tissues to the fascia, which was then scored, elevated and then the abdomen was then entered. An Vicryl was placed in a [id number] fashion for closure at the end of the case. Balloon trocar was inserted and pneumoperitoneum was achieved. Under direct visualization of the laparoscope, a 5 mm trocar was placed in the subxiphoid region and two 5 mm trocars were placed in the right upper quadrant. I inspected noting the falciform had herniated through the abdominal wall to the area that was suspected for a possible hernia. The gallbladder was able to be grasped and elevated. Adhesions were taken down. The cystic duct and cystic artery were dissected out. Clips were placed on the proximal and distal portion of the cystic artery and distal portion of the cystic duct. The duct was then partially transected. Arrow catheter was inserted for cholangiogram, no filling defects. Contrast made its way into the duodenum. The catheter was removed. Clips were placed on the proximal portion of the cystic duct and cystic artery were then completely transected. Hook cautery used to dissect the gallbladder from the gallbladder fossa achieving hemostasis. This was then removed through the 12 mm trocar site. Under direct visualization of the laparoscope, a 5 mm trocar was placed in the left lateral portion of her abdomen. Using hook cautery and blunt dissection, the hernia contents were dissected out and then reduced. The falciform was also taken down in a cephalad fashion. The hernia defect was noted. Using 0 Vicryl, the hernia defect was then closed. A piece of Phasix mesh was then inserted into the abdomen and secured to reinforce the closed defect, creating an outer crown and an inner crown. The 0 Vicryl was placed at the beginning of the case was closed previous to tacking the mesh into place after the 12 mm trocar was removed. The abdomen was then irrigated with copious amounts of irrigation. The abdomen was then desufflated, the trocars were removed. The skin was then closed using 4-0 Monocryl in a subcuticular fashion. Skin Affix was placed over the incisions after the areas were washed and dried. The patient tolerated the procedure well without any complications. She was taken to recovery room in stable condition. Job ID: [id number] DocumentID: [id number] Dictated Date: 09/28/2021 20:47:33 [employer] And Oil Servicer Date: 09/29/2021 05:40:38 Dictated By: CHRIST GILLIAM DO
== END 2021-09-27 16:15 | disposition home or self-care (01) ==
LOC: SDC 10:30
PROVIDERS: ATTEND Surgery
DX: K82.8 Other specified diseases of gallbladder (principal); K43.0 Incisional hernia with obstruction, without gangrene; K81.1 Chronic cholecystitis; F17.210 Nicotine dependence, cigarettes, uncomplicated; E66.01 Morbid (severe) obesity due to excess calories; Z68.42 Body mass index [BMI] 45.0-49.9, adult
CPT/HCPCS: 76000; 84703; 87081

== ENCOUNTER 2022-05-09 21:36 | Emergency (ER) | payer OTHER ==
[~2022-05-09] VITALS: Ht 160 cm; Wt 113.0 kg
[~2022-05-09 21:36] MED LIST changes: +ALBU8.5H6 IH; +DOCU-143 PO; -RT-ALBUINH IH
[2022-05-09 21:38] VITALS: BP 123/81
[2022-05-09] MEDS ORDERED: LACTATED RINGERS 1,000 ML IV ONE (21:45)
--- NOTE | 2022-05-09 21:58 | ED GI ---
General Chief Complaint: Abdominal/GI Problems Stated Complaint: VOMITING,DIARRHEA Nursing Triage Note: PT PRESENTS WITH C/O NAUSEA/VOMITING AND DIARRHEA THAT STARTED FRIDAY. SHE WENT TO [facility] THIS MORNING AND WAS GIVEN PHENERGAN. SHE STATES IT IS NOT WORKING AND THEY ADVISED HER TO COME TO ER IF SHE DOES NOT GET BETTER. LAST DOSE OF PHENERGAN AT 0930 THIS MORNING. PT STATES SHES BEEN DRINKING WATER AND PEDIALYTE Source of Information: Patient History of Present Illness Date Seen by Provider: May 09, 2022 Time Seen by Provider: 21:45 Initial Comments PT ARRIVES VIA POV FROM HOME SHE HAS BEEN SICK SINCE FRIDAY NIGHT 05/06/22 WITH: -NAUSEA/VOMITING/DIARRHEA--VOMITED AT LEAST 10 TIMES TODAY, DIARRHEA 8-10 TIMES TODAY. NO HEMATEMESIS OR COFFEE GROUND EMESIS. NO BLACK/BLOODY/TARRY STOOLS -HEADACHE -BODY ACHES -TEMP 99 -MILD COUGH AND CONGESTION -DECREASED URINE OUTPUT--ONLY VOIDED TWICE TODAY -HAS SOME MILD UPPER ABDOMINAL DISCOMFORT LMP 04/30-05/05/22. NORMAL. NO CONTROL SON IS ILL WITH SAME, 3 OTHER HOUSEHOLD MEMBERS ARE NOT ILL. NO SUSPICIOUS FOODS PT WENT TO [facility] THIS MORNING, AND WAS GIVEN RX FOR PHENERGAN. NO TESTS WERE DONE. SHE TOOK 1 PHENERGAN AT 0930 THIS AM. PT HAS HAD COVID VACCINE X 2 IN 2020, PLUS SEASONAL FLU VACCINE PT WORKS HERE AT HOSPITAL. SHE HAS HAD PRIOR CHOLECYSTECTOMY NO CHRONIC MEDICAL PROBLEMS, NO GI PROBLEMS PCP: [facility] Allergies and Home Medications Allergies Coded Allergies: No Known Drug Allergies (Unverified , 09/24/21) Patient Home Medication List Home Medication List Reviewed: Yes Albuterol Sulfate (Ventolin Hfa) 1 Puff Puff, 1-4 PUFF IH Q4H PRN for SHORTNESS OF BREATH Prescribed by: AGUSTIN JANSEN on 02/11/17 1950 Docusate Sodium (Colace) 100 Mg Capsule, 100 MG PO BID Prescribed by: CHRIST LINDSAY on 09/27/21 1353 Hydrocodone/Acetaminophen (Hydrocodone-Acetamin 5-325 mg) 5 Mg-325 Mg Tablet, 1 EACH PO Q4H PRN for PAIN-MODERATE (5-7) Prescribed by: CHRIST LINDSAY on 09/27/21 1353 Lactobacillus Acidophilus (Acidophilus Lactobacillus) 1 Billion Unit/Gram Powder, 1 GM MC QID Prescribed by: ALLEN MORENO on 05/10/2239 Ondansetron (Ondansetron Odt) 4 Mg Tab.rapdis, 4 MG PO Q4H Prescribed by: ALLEN MORENO on 05/10/2239 Review of Systems Review of Systems Constitutional: see HPI, fever EENTM: See HPI, Nose Congestion Respiratory: See HPI, Cough Cardiovascular: No Symptoms Reported Gastrointestinal: See HPI; Denies Abdominal Pain; Diarrhea, Nausea, Poor Appetite, Poor Fluid Intake, Vomiting Genitourinary: See HPI (DECREASED OUTPUT); Denies Pain Musculoskeletal: see HPI (BODY ACHES) Skin: no symptoms reported Psychiatric/Neurological: See HPI, Headache Endocrine: No Symptoms Reported Hematologic/Lymphatic: No Symptoms Reported Past Ruekift-Tqtmmy-Pjrswh Hx Patient Social History Tobacco Use?: Yes Tobacco type used: Cigarettes Smoking Status: Current Everyday Smoker Use of E-Cig and/or Vaping dev: No Substance use?: No Alcohol Use?: No Immunizations Up To Date Tetanus Booster (TDap): Less than 5yrs Influenza Vaccine Up-to-Date: Yes; Up-to-Date First/Initial COVID19 Vaccinat: 12/2020 Second COVID19 Vaccination [place]: 01/2021 Third COVID19 Vaccination Date: 12/2020 Seasonal Allergies Seasonal Allergies: No Past Medical History Surgeries: Yes (OVARIAN CYST) Section, Gallbladder, Oophorectomy Respiratory: Yes Asthma Currently Using CPAP: No Currently Using BIPAP: No Cardiac: No Neurological: No : No Reproductive Disorders: No Female Reproductive Disorders: Denies Sexually Transmitted Disease: No HIV/AIDS: No Genitourinary: No Gastrointestinal: Yes (S/P SHARAN AND HERNIA REPAIR) Abdominal Hernia Musculoskeletal: No Endocrine: No (OBESITY) HEENT: No Cancer: No Psychosocial: No Integumentary: No Blood Disorders: No Adverse Reaction/Blood Tranf: No Family Medical History Patient reports no known family medical history. No Pertinent Family Hx SOCIAL HISTORY: -/2-1 PPD -DENIES ETOH -DENIES DRUG USE PAST SURGICAL HISTORY: - X 3 -OVARIAN CYST REMOVAL -CHOLECYSTECTOMY WITH VENTRAL HERNIA REPAIR 09/2021 Physical Exam Vital Signs Vital Signs - First Documented 05/09/22 21:38 Temp 36.6 Pulse 111 Resp 16 B/P (MAP) 123/81 (95) Capillary Refill : Less Than 3 Seconds Height/Weight/BMI Height: 5'4.00" Weight: 275lbs. 0oz. 124.847946ge; 44.00 BMI Method:Stated General Appearance: WD/WN, no apparent distress, obese, other (SITTING UP, TEXTING / PLAYING ON PHONE. ) HEENT: No scleral icterus (R), No scleral icterus (L), No pale conjunctivae (R), No pale conjunctivae (L) Neck: normal inspection Respiratory: normal breath sounds, no respiratory distress, no accessory muscle use Cardiovascular: regular rate, rhythm, no edema, no murmur Gastrointestinal: normal bowel sounds, soft; No distended, No guarding, No rebound; tenderness (RUQ TENDERNESS, AND MILD EPIGASTRIC TENDERNESS), hernia (SMALL REDUCIBLE, NON-TENDER UMBILICAL HERNIA); No mass Extremities: normal inspection Back: no CVA tenderness Neurologic/Psychiatric: assistant food service manager II-XII nml as tested, no motor/sensory deficits, alert, normal mood/affect, oriented x 3 Skin: normal color, warm/dry Progress/Results/Core Measures Results/Orders Lab Results Laboratory Tests Test 05/09/22 22:00 05/09/22 22:03 05/09/22 22:15 Range/Units Urine Color ORANGE Urine Clarity CLEAR Urine pH 6.0 5-9 Urine Specific [place] 1.020 1.016-1.022 Urine Protein 1+ H NEGATIVE Urine Glucose (UA) NEGATIVE NEGATIVE Urine Ketones TRACE H NEGATIVE Urine Nitrite NEGATIVE NEGATIVE Urine Bilirubin NEGATIVE NEGATIVE Urine Urobilinogen 4.0 < = 1.0 MG/DL Urine Leukocyte Esterase NEGATIVE NEGATIVE Urine RBC (Auto) TRACE-I H NEGATIVE Urine RBC 0-2 /HPF Urine WBC RARE /HPF Urine Squamous Epithelial Cells 10-25 H /HPF Urine Crystals NONE /LPF Urine Bacteria FEW H /HPF Urine Casts NONE /LPF Urine Mucus MODERATE H /LPF Urine Culture Indicated NO Influenza Type A (RT-PCR) Not Detected Not Detecte Influenza Type B (RT-PCR) Not Detected Not Detecte SARS-CoV-2 RNA (RT-PCR) Not Detected Not Detecte White Blood Count 8.9 4.3-11.0 10^3/uL Red Blood Count 5.33 H 3.80-5.11 10^6/uL Hemoglobin 16.4 H 11.5-16.0 g/dL Hematocrit 47 35-52 % Mean Corpuscular Volume 89 80-99 fL Mean Corpuscular Hemoglobin 31 25-34 pg Mean Corpuscular Hemoglobin Concent 35 32-36 g/dL Red Cell Distribution Width 12.0 10.0-14.5 % Platelet Count 243 130-400 10^3/uL Mean Platelet Volume 10.3 9.0-12.2 fL Immature Granulocyte % (Auto) 0 % Neutrophils (%) (Auto) 60 42-75 % Lymphocytes (%) (Auto) 27 12-44 % Monocytes (%) (Auto) 10 0-12 % Eosinophils (%) (Auto) 3 0-10 % Basophils (%) (Auto) 1 0-10 % Neutrophils # (Auto) 5.3 1.8-7.8 10^3/uL Lymphocytes # (Auto) 2.4 1.0-4.0 10^3/uL Monocytes # (Auto) 0.9 0.0-1.0 10^3/uL Eosinophils # (Auto) 0.2 0.0-0.3 10^3/uL Basophils # (Auto) 0.0 0.0-0.1 10^3/uL Immature Granulocyte # (Auto) 0.0 0.0-0.1 10^3/uL Sodium Level 135 135-145 MMOL/L Potassium Level 3.4 L 3.6-5.0 MMOL/L Chloride Level 102 98-107 MMOL/L Carbon Dioxide Level 23 21-32 MMOL/L Anion Gap 10 5-14 MMOL/L Blood Urea Nitrogen 9 7-18 MG/DL Creatinine 0.78 0.60-1.30 MG/DL Estimat Glomerular Filtration Rate 103 BUN/Creatinine Ratio 12 Glucose Level 187 H 70-105 MG/DL Calcium Level 8.7 8.5-10.1 MG/DL Corrected Calcium 8.9 8.5-10.1 MG/DL Magnesium Level 1.9 1.6-2.4 MG/DL Total Bilirubin 0.6 0.1-1.0 MG/DL Aspartate Amino Transf (AST/SGOT) 185 H 5-34 U/L Alanine Aminotransferase (ALT/SGPT) 184 H 0-55 U/L Alkaline Phosphatase 146 H 40-136 U/L Total Protein 7.2 6.4-8.2 GM/DL Albumin 3.7 3.2-4.5 GM/DL Amylase Level 22 L 25-125 U/L Lipase 10 8-78 U/L My Orders Orders - ALLEN MORENO DO Ed Iv/Invasive Line Start (05/09/22 21:45) Urine Bedside (05/09/22 21:45) Monitor-Rhythm Ecg Trace Only (05/09/22 21:45) Amylase (05/09/22 21:45) Cbc With Automated Diff (05/09/22 21:45) Comprehensive Metabolic Panel (05/09/22 21:45) Lipase (05/09/22 21:45) Magnesium (05/09/22 21:45) Ua Culture If Indicated (05/09/22 21:45) Covid 19 Inhouse Test (05/09/22 21:45) Influenza A And B By Pcr (05/09/22 21:45) Isolation Central Supply Req (05/09/22 21:45) Ed Iv/Invasive Line Start (05/09/22 21:45) Lactated Ringers (Lr 1000 Ml Iv Solution (05/09/22 21:45) Ct Abdomen/Pelvis W (05/09/22 23:05) Hepatitis Panel Acute (05/09/22 23:05) Rx-Ondansetron Po (Rx-Zofran Po) (05/10/22 00:45) Medications Given in ED Current Medications Medications Dose Ordered Sig/Venkatesh Route Start Time Stop Time Status Last Admin Dose Admin Lactated Ringer's 1,000 ml @ 0 mls/hr Q0M ONCE IV 05/09/22 21:45 05/09/22 21:47 DC 05/09/22 22:22 0 MLS/HR Vital Signs/I&O 05/09/22 21:38 Temp 36.6 Pulse 111 Resp 16 B/P (MAP) 123/81 (95) Blood Pressure Mean: 95 Progress Progress Note : Progress Note PPE WORN COVID AND FLU TESTING DONE GIVEN: -IV FLUIDS NO VOMITING OR DIARRHEA DURING ER STAY REVIEWED PRIOR RECORDS INCLUDING ER VISITS, ADMITS, H&P'S, TESTS/PROCEDURES AND DISCHARGE SUMMARIES DISCUSSED TEST RESULTS, SYMPTOMATIC TREATMENT, MEDICATIONS, DIET, NEED FOR FOLLOW UP, PENDING LAB AND RETURN PRECAUTIONS. Diagnostic Imaging Comments CT ABDOMEN/PELVIS--PER [facility] VIA FAX AT 0035 -DIFFUSELY FLUID-FILLED BOWEL LOOPS, CORRELATE WITH ENTERITIS -ENLARGED FATTY LIVER -NON-OBSTRUCTIVE STONE IN RIGHT KIDNEY OF NOTE, ON MY REVIEW OF CT, IT APPEARS THAT PT ALSO HAS A SMALL UMBILICAL HERNIA. Reviewed: Reviewed by Me Departure Impression Primary Impression: Gastroenteritis Additional Impressions: Elevated liver enzymes Hyperglycemia Fatty liver Disposition: HOME, SELF-CARE Condition: Stable Departure-Patient Inst. Decision time for Depature: 00:37 Referrals: [facility] (PCP/Family) Primary Care Physician Patient Instructions: Viral Gastroenteritis, Adult (DC), High Blood Sugar, Adult ED, Nonalcoholic Fatty Liver Disease Add. Discharge Instructions: CLEAR LIQUIDS--WATER, BROTH, JELLO, GATORADE BRATS DIET--BANANAS, RICE, APPLESAUCE, TOAST, SALTINES AVOID TYLENOL / ACETAMINOPHEN AND ALCOHOL FOLLOW UP WITH YOUR DR IN 2-3 DAYS FOR RECHECK, RETURN TO ER IF SYMPTOMS WORSEN All discharge instructions reviewed with patient and/or family. Voiced understanding. Scripts Ondansetron (Ondansetron Odt) 4 Mg Tab.rapdis 4 MG PO Q4H for Nausea/Vomiting, #10 TAB Prov: ALLEN MORENO DO 05/10/22 Lactobacillus Acidophilus (Acidophilus Lactobacillus) 1 Billion Unit/Gram Powder 1 GM MC QID for 10 Days, #1 EA Prov: ALLEN MORENO DO 05/10/22 Work/School Note: Work Release Form Date Seen in the Emergency Department: May 09, 2022 Return to Work: May 13, 2022 Restrictions: No Restrictions ALLEN MORENO DO May 09, 2022 21:58
[2022-05-09 22:11] LABS: BILIRUBIN,URINE NEGATIVE (NEGATIVE); CLARITY,URINE CLEAR; COLOR,URINE ORANGE; GLUCOSE, URINE (UA) NEGATIVE (NEGATIVE); KETONES,URINE TRACE (NEGATIVE); LEUKOCYTE ESTERASE ,URINE NEGATIVE (NEGATIVE); NITRITE,URINE NEGATIVE (NEGATIVE); PROTEIN,URINE 1+ (NEGATIVE)
[2022-05-09 22:23] LABS: BASOPHILS % (AUTO) 1 % (0-10); EOSINOPHILS # (AUTO) 0.2 10^3/uL (0.0-0.3); EOSINOPHILS % (AUTO) 3 % (0-10); HEMATOCRIT 47 % (35-52); HEMOGLOBIN 16.4 g/dL (11.5-16.0); LYMPHOCYTES # (AUTO) 2.4 10^3/uL (1.0-4.0); LYMPHOCYTES % (AUTO) 27 % (12-44); MEAN CORPUSCULAR HEMOGLOBIN 31 pg (25-34); MEAN CORPUSCULAR HGB CONC 35 g/dL (32-36); MEAN CORPUSCULAR VOLUME 89 fL (80-99); MEAN PLATELET VOLUME 10.3 fL (9.0-12.2); MONOCYTES # (AUTO) 0.9 10^3/uL (0.0-1.0); MONOCYTES % (AUTO) 10 % (0-12); NEUTROPHILS # (AUTO) 5.3 10^3/uL (1.8-7.8); NEUTROPHILS % (AUTO) 60 % (42-75); PLATELET COUNT 243 10^3/uL (130-400); WHITE BLOOD COUNT 8.9 10^3/uL (4.3-11.0)
[2022-05-09 22:23] LABS: BACTERIA,URINE FEW /HPF; RBC,URINE 0-2 /HPF; WBC,URINE RARE /HPF
[2022-05-09 22:50] LABS: ALBUMIN 3.7 GM/DL (3.2-4.5); BILIRUBIN,TOTAL 0.6 MG/DL (0.1-1.0); CALCIUM 8.7 MG/DL (8.5-10.1); CREATININE SERUM 0.78 MG/DL (0.60-1.30); MAGNESIUM 1.9 MG/DL (1.6-2.4); POTASSIUM 3.4 MMOL/L (3.6-5.0); TOTAL PROTEIN 7.2 GM/DL (6.4-8.2)
[2022-05-10] MEDS ORDERED: ONDA4TAB11 PO (00:40)
[2022-05-10] MEDS ORDERED: LACT1POW8 MC (00:40)
[2022-05-10] MEDS ORDERED: RX-ONDANSETRON 4 MG ODT (ZOFRAN) PPK #4 PO STA (00:45)
--- NOTE | 2022-05-10 07:18 | Diagnostic Imaging Report ---
PROCEDURE: CT abdomen and pelvis with contrast. TECHNIQUE: Multiple contiguous axial images were obtained through the abdomen and pelvis after administration of intravenous contrast. Auto Exposure Controls were utilized during the CT exam to meet ALARA standards for radiation dose reduction. All CT scans use one or more of the following dose optimizing techniques: automated exposure control, MA and/or KvP adjustment based on patient size and exam type or iterative reconstruction. INDICATION: Nausea, vomiting, diarrhea and elevated liver enzymes. EXAMINATION: CT abdomen pelvis with contrast 05/27/2022 COMPARISON: 03/13/2018 FINDINGS: Lung bases clear. Marked heterogeneity noted throughout the liver likely all due to hepatic steatosis with areas of focal fatty sparing. The spleen is unremarkable. Pancreas and adrenal glands unremarkable. Postcholecystectomy changes noted. Kidneys unremarkable. Appendix normal. There is fluid throughout slightly prominent small bowel loops suggesting enteritis with possible colitis given fluid in the right colon. There is a fatty hernia along the ventral aspect of the abdomen. No ascites or free air. No acute osseous abnormality IMPRESSION: 1. Findings suspicious for enteritis/colitis. 2. Hepatic steatosis. Pertinent findings agree with the preliminary report. Dictated by: Dictated on workstation # [id number]
[2022-05-10 21:22] LABS: HEPATITIS C ANTIBODY C Non-Reactive (Non-Reactive)
== END 2022-05-10 00:55 | disposition home or self-care (01) ==
LOC: EDUNIT# 21:36 → ER 21:38
DX: K52.9 Noninfective gastroenteritis and colitis, unspecified (principal); K76.0 Fatty (change of) liver, not elsewhere classified; R73.9 Hyperglycemia, unspecified; E66.9 Obesity, unspecified; F17.210 Nicotine dependence, cigarettes, uncomplicated; Z90.49 Acquired absence of other specified parts of digestive tract; Z87.19 Personal history of other diseases of the digestive system; Z98.890 Other specified postprocedural states; Z68.41 Body mass index [BMI] 40.0-44.9, adult; Z20.822 Contact with and (suspected) exposure to COVID-19
CPT/HCPCS: 36415; 74177; 80053; 80074; 81000; 82150; 83690; 83735; 84703; 85025; 87636